=== PATIENT | male | born 1965 | race Caucasian/White ===

== ENCOUNTER 2017-01-23 09:12 | Inpatient (IN) | payer BC ==
[2017-01-23] MEDS ORDERED: SODIUM CHLORIDE 0.9% 1,000 ML IV STA ×2 (11:15)
[2017-01-23] MEDS ORDERED: RX INFO: IV CONTRAST WAS GIVEN 1 EACH MISC MISCELLANE PRN (11:15)
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
[2017-01-23 11:51] LABS: Basophils # (A) 0.1 k/uL (0-0.2); Basophils % (A) 1 %; CH 32.1; Eosinophils # (A) 0.4 k/uL (0-0.7); Eosinophils % (A) 3 %; HCT 47.5 % (39.0-53.0); HDW 2.37; HGB 15.9 gm/dL (13.0-17.5); Luc # (Auto) 0.26; Luc % (Auto) 2; Lymphocytes # (A) 1.8 k/uL (1.0-4.8); Lymphocytes % (A) 14 %; MCH 31.7 pg (25.0-35.0); MCHC 33.4 g/dL (31.0-37.0); MCV 94.8 fL (80.0-100.0); Mean Platelet Volume 6.7; Monocytes # (A) 0.9 k/uL (0-1.0); Monocytes % (A) 7 %; Neutrophils # (A) 9.3 k/uL (1.3-7.7); Neutrophils % (A) 73 %; RBC 5.01 m/uL (4.30-5.90); RDW 12.9 % (11.5-15.5); WBC 12.8 k/uL (3.8-10.6); WBC (Perox) 12.37
[2017-01-23 12:04] LABS: ALT 38 U/L (21-72); AST 31 U/L (17-59); Alkaline Phosphatase 72 U/L (38-126); Amylase 57 U/L (30-110); Anion Gap 12 mmol/L; Blood Urea Nitrogen 18 mg/dL (9-20); Calcium 9.4 mg/dL (8.4-10.2); Carbon Dioxide 27 mmol/L (22-30); Chloride 105 mmol/L (98-107); Glucose 89 mg/dL (74-99); Non-African American GFR(MDRD) >60 (>60 ml/min/1.73 sqM); Potassium 4.5 mmol/L (3.5-5.1); Sodium 144 mmol/L (137-145); Total Bilirubin 0.7 mg/dL (0.2-1.3); Total Protein 7.5 g/dL (6.3-8.2)
--- NOTE | 2017-01-23 12:39 | CT ---
EXAMINATION TYPE: CT abdomen pelvis w con DATE OF EXAM: 01/23/2017 12:24 PM COMPARISON: CT pelvis 12/17/2010 INDICATION: Abdominal pain DLP: 888.30 mGycm, Automated exposure control for dose reduction was used. CONTRAST: 100 ml mL of Omnipaque 300. Study performed without Oral Contrast TECHNIQUE: Axial images were obtained from above the diaphragm to the pubic rami in the axial plane a t 5 mm thick sections. Reconstructed images are reviewed on the computer in the coronal plane. FINDINGS: Limited CT sections are obtained the lung bases. There is a tiny density within the cardiophrenic an gle on lung windows measuring 0.[address] ABDOMEN: Liver: Normal Spleen: Normal Pancreas: Normal Adrenal glands: The adrenal glands are normal. Gallbladder: Normal Kidneys: No masses are evident. No hydronephrosis is present. No cysts are present. Delayed images were obtained through the kidneys, which remain unremarkable. Aorta: Vascular calcification is within the aorta. Inferior vena cava: Normal. CT PELVIS: Diverticular changes are within the sigmoid colon. There is some thickening with some mild inflammato ry change within the mid to distal sigmoid colon compatible with acute diverticulitis. Additional div erticula are scattered within the descending colon. A few diverticuli may be within the transverse co maury. No abscess formation is evident. No free air is identified. Appendix: Normal as visualized. Urinary bladder: Decompressed with limited evaluation. Genitourinary structures: Prostate is unremarkable. Fat-containing inguinal hernias are present bilat erally. Osseous structures: No suspicious lytic or sclerotic lesions. Facet degenerative changes within the l ower lumbar spine. IMPRESSIONS: 1. Mild to moderate acute diverticulitis mid to distal sigmoid colon.
[2017-01-23] MEDS ORDERED: ONDANSETRON 4 MG/2 ML VIAL IVP PRN (13:00)
[2017-01-23] MEDS ORDERED: SODIUM CHLORIDE 0.9% 1,000 ML IV ONE (13:00)
[2017-01-23] MEDS ORDERED: NALOXONE 0.4 MG/ML 1 ML VIAL IV PRN (13:00)
[2017-01-23] MEDS ORDERED: LEVOFLOXACIN 500MG-D5W PMX 500 MG in DEXTROSE/WATER 1 100ML.BAG IVPB STA (13:02)
[2017-01-23] MEDS ORDERED: metroNIDAZOLE-NS PMX 500 MG in SALINE 1 100ML.BAG IVPB STA (13:05)
[2017-01-23 13:15] LABS: Appearance,Urine Clear (Clear); Bilirubin,Urine Negative (Negative); Glucose,Urine (UA) Negative (Negative); Ketones,Urine Negative (Negative); Leukocyte Esterase,Urine Negative (Negative); Nitrite,Urine Negative (Negative); PH, Urine 6.5 (5.0-8.0); Protein,Urine Negative (Negative); Specific Gravity,Urine 1.021 (1.001-1.035); UA Billing (MACRO vs. MICRO) CHEM; Urobilinogen,Urine <2.0 mg/dL (<2.0)
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
[2017-01-23 15:24] VITALS: BMI 32.1
--- NOTE | 2017-01-23 20:20 | HP ---
DATE OF ADMISSION: 01/23/2017 The patient is a 51 -year-old came in with complaints of abdominal pain and bilateral lower abdominal quadrants. Patient complaining of some chills a couple days ago. Never checked for any fever. The patient feels bloated and distended and patient had a CT of the abdomen which showed sigmoid colitis mild to moderate. The patient was evaluated by surgery and they are recommending him to be n.p.o. for bowel rest. The patient was started on IV antibiotics. Patient does not get constipated that often. REVIEW OF SYSTEMS: CONSTITUTIONAL: No fever, no malaise, no fatigue. HEENT: No recent visual problems or hearing problems. Denied any sore throat. CARDIOVASCULAR: No chest pain, orthopnea, PND, no palpitations, no syncope. PULMONARY: No shortness of breath, no cough, no hemoptysis. GASTROINTESTINAL: As described in HPI. NEUROLOGICAL: No headaches, no weakness, no numbness. HEMATOLOGICAL: Denies any bleeding or petechiae. GENITOURINARY: Denies any burning micturition, frequency, or urgency. MUSCULOSKELETAL/RHEUMATOLOGICAL: Denies any joint pain, swelling, or any muscle pain. ENDOCRINE: Denies any polyuria or polydipsia. The rest of the 14 point review of systems is negative. PAST MEDICAL HISTORY: Asthma and hyperlipidemia. PAST SURGICAL HISTORY: Hernia repair. SOCIAL HISTORY: Former smoker. Denied any alcohol abuse or any drug abuse. FAMILY HISTORY: Father had DVT and brother had DVT and son had DVT . Home medications include: 1. Aspirin. 2. Bisacodyl. 3. Cholecalciferol. 4. Ciprofloxacin. 5. Indomethacin. 6. Multivitamin. 7. Pravastatin. 8. Flagyl. 9. Not sure whether these are home medications. Patient appears to be on these medications here. ALLERGIC TO PENICILLINS: PHYSICAL EXAMINATION: VITAL SIGNS: Temperature 96.2, pulse rate of 66, respiratory rate 16, blood pressure is 142/90, saturating at 98% on room air. GENERAL: The patient is alert and oriented x3, not in any acute distress. Well developed, well nourished. HEENT: Pupils are round and equally reacting to light. EOMI. No scleral icterus. No conjunctival pallor. Normocephalic, atraumatic. No pharyngeal erythema. No thyromegaly. CARDIOVASCULAR: S1 and S2 present. No murmurs, rubs, or gallops. PULMONARY: Chest is clear to auscultation, no wheezing or crackles. ABDOMEN: Soft, nontender, nondistended, normoactive bowel sounds. No palpable organomegaly. MUSCULOSKELETAL: No joint swelling or deformity. EXTREMITIES: No cyanosis, clubbing, or pedal edema. NEUROLOGICAL: Gross neurological examination did not reveal any focal deficits. SKIN: No rashes. LABORATORY DATA: ( ) abnormal for WBC count of 5800. CT of the abdomen as mentioned above. ASSESSMENT AND PLAN: 1. Acute diverticulitis for which we will continue with IV antibiotics. As per surgical recommendations, we will keep him n.p.o. 2. Hypertension, we will continue home medications for that. The patient is ( ) blood pressure is under control at this time. 3. Bilateral inguinal hernia, asymptomatic at this point of time. 4. Regarding hypertension, not is not on any antihypertensive medications. 5. For gastroesophageal reflux disease, we can continued omeprazole. 6. Regarding hypertension, we will continue to watch blood pressure ( ). Will not be started on any antihypertensives at this time. The patient will be followed by Dr. Hassan who covers for Dr. Peter Goncalves ( ) primary care physician from tomorrow.
[2017-01-23] MEDS: metroNIDAZOLE-NS PMX 500 MG in SALINE 1 100ML.BAG IVPB SCH (23:00)
[2017-01-24] MEDS: HYDROmorphone 1 MG/ML 1 ML SYRINGE IV PRN ×3 (02:29→16:41)
[2017-01-24 07:29] LABS: Basophils # (A) 0.1 k/uL (0-0.2); Basophils % (A) 1 %; CH 32.1; CHCM 33.6; Eosinophils # (A) 0.3 k/uL (0-0.7); Eosinophils % (A) 3 %; HCT 44.3 % (39.0-53.0); HDW 2.37; HGB 14.6 gm/dL (13.0-17.5); Luc # (Auto) 0.22; Luc % (Auto) 3; Lymphocytes # (A) 1.7 k/uL (1.0-4.8); Lymphocytes % (A) 22 %; MCH 31.6 pg (25.0-35.0); MCV 95.8 fL (80.0-100.0); Mean Platelet Volume 6.8; Monocytes # (A) 0.6 k/uL (0-1.0); Monocytes % (A) 7 %; Neutrophils # (A) 5.1 k/uL (1.3-7.7); Neutrophils % (A) 64 %; RBC 4.62 m/uL (4.30-5.90); RDW 12.7 % (11.5-15.5); WBC 7.9 k/uL (3.8-10.6); WBC (Perox) 8.43
[2017-01-24 07:50] LABS: ALT 38 U/L (21-72); AST 26 U/L (17-59); Alkaline Phosphatase 64 U/L (38-126); Anion Gap 8 mmol/L; Blood Urea Nitrogen 15 mg/dL (9-20); Calcium 8.5 mg/dL (8.4-10.2); Carbon Dioxide 26 mmol/L (22-30); Chloride 107 mmol/L (98-107); Glucose 85 mg/dL (74-99); Non-African American GFR(MDRD) >60 (>60 ml/min/1.73 sqM); Potassium 4.5 mmol/L (3.5-5.1); Sodium 141 mmol/L (137-145); Total Bilirubin 0.6 mg/dL (0.2-1.3); Total Protein 6.4 g/dL (6.3-8.2)
[2017-01-24] MEDS: metroNIDAZOLE-NS PMX 500 MG in SALINE 1 100ML.BAG IVPB SCH ×3 (09:51→23:26)
[2017-01-24] MEDS: ACETAMINOPHEN TAB 325 MG TAB PO PRN ×2 (13:20→19:26)
[2017-01-24] MEDS: LEVOFLOXACIN 500MG-D5W PMX 500 MG in DEXTROSE/WATER 1 100ML.BAG IVPB SCH (13:21)
[2017-01-24] MEDS: ENOXAPARIN 40 MG/0.4 ML SYRINGE SQ SCH (13:21)
--- NOTE | 2017-01-24 17:57 | P.PN ---
Subjective Principal diagnosis: Diverticulitis Having a headache (migrain with nausea. Possible caffeine wihdrawal. Pain is well controlled. Mild nasuea. No bowel movments. Objective - Vital Signs Vital signs: Vital Signs Temp 97.1 F L 01/24/17 14:50 Pulse 72 01/24/17 14:50 Resp 16 01/24/17 07:00 BP 128/78 01/24/17 14:50 Pulse Ox 98 01/24/17 14:50 Intake & Output 01/23/17 01/24/17 01/24/17 18:59 06:59 18:59 Output Total 1050 Balance -1050 Weight 92.986 kg Output: Urine 1050 Other: Voiding Method Toilet Urinal # Voids 1 2 - Constitutional General appearance: Present: average body habitus, cooperative, mild distress - Gastrointestinal Gastrointestinal Comment(s): soft and nontender no peritoneal signs. - Labs CBC & Chem 7: 01/24/17 06:52 01/24/17 06:52 Assessment and Plan (1) Bilateral inguinal hernia Status: Acute (2) Acute diverticulitis Status: Acute Plan: Patient is mildly tender. He has leukocytosis that is resolving . He maybe started in clear liquids. Patient has asymptomatic bilateral inguinal hernias that need no current treatment Will follow closely with you. Thank you for the consult.
--- NOTE | 2017-01-25 06:44 | PN ---
DATE OF SERVICE: 01/24/2017 PRESENTING COMPLAINT: Abdominal pain, bilateral lower quadrants. INTERVAL HISTORY: This is a 51-year-old male who came in with complaints of abdominal pain to his bilateral lower abdominal quadrants. CT of the abdomen showed sigmoid colitis mild to moderate in severity. Surgery has evaluated the patient and recommend patient to remain n.p.o. for bowel rest. Today patient was lying in bed appearing somewhat uncomfortable, is still complaining of some abdominal pain, has improved since admission. Still has nauseated feelings at this time. Review of systems done for constitutional, cardiovascular, gastrointestinal, pulmonary with relevant findings as above. CURRENT MEDICATIONS: Lovenox, hydromorphone, levofloxacin, metronidazole, Zofran. PHYSICAL EXAM: VITAL SIGNS: Temperature 98.2, pulse 75, respiratory rate 16, blood pressure 125/76, oxygen saturation 93% on room air. GENERAL APPEARANCE: Patient is awake, alert, able to answer questions. Complaining of abdominal pain better than when he was admitted. EYES: Pupils equal. Conjunctivae normal. NECK: JVD not raised. Mass not palpable. RESPIRATORY: Effort normal. LUNGS: Diminished bilateral bases. Fair airway clearance. CARDIOVASCULAR: S1, S2 normal. No edema noted. ABDOMEN: Soft, tender to palpation, particularly to the left lower and mid line areas. Liver and spleen not palpable. PSYCHIATRIC: Patient is alert and oriented x3. Mood and affect are normal. INVESTIGATIONS: White blood cell count 18.2 up from 14.6 on 01/23/17. Sodium 134, down from 138 on 01/23/17. BUN 39, creatinine 0.80. CT scan dated 01/23/2017; Impression: Mild to moderate acute diverticulitis mid to distal sigmoid colon. ASSESSMENT: 1. Acute diverticulitis. Continue IV fluids and antibiotics with bowel rest per surgical recommendations. 2. Hypertension. 3. Chronic gout. 4. Leukocytosis, improving. 5. Gastroesophageal reflux. PLAN: Diverticulitis will continue to be treated with IV antibiotics and bowel rest. Hypertension is currently under control. Will continue to administer current medications. Will address blood pressure issues as they arise, currently well controlled. Chronic gout, patient is currently in well managed with allopurinol. Will continue. Gastroesophageal reflux disease will be continued to manage with omeprazole.
[2017-01-25 07:02] LABS: Basophils % (A) 1 %; CHCM 33.6; Eosinophils # (A) 0.2 k/uL (0-0.7); Eosinophils % (A) 2 %; HCT 47.3 % (39.0-53.0); HGB 15.4 gm/dL (13.0-17.5); Luc # (Auto) 0.18; Luc % (Auto) 2; Lymphocytes # (A) 1.4 k/uL (1.0-4.8); Lymphocytes % (A) 17 %; MCH 31.2 pg (25.0-35.0); MCHC 32.7 g/dL (31.0-37.0); MCV 95.7 fL (80.0-100.0); Mean Platelet Volume 6.6; Monocytes # (A) 0.5 k/uL (0-1.0); Monocytes % (A) 6 %; Neutrophils # (A) 5.9 k/uL (1.3-7.7); Neutrophils % (A) 72 %; RBC 4.94 m/uL (4.30-5.90); RDW 12.7 % (11.5-15.5); WBC 8.2 k/uL (3.8-10.6); WBC (Perox) 7.95
[2017-01-25 07:13] LABS: Amylase 49 U/L (30-110); Anion Gap 10 mmol/L; Blood Urea Nitrogen 12 mg/dL (9-20); Carbon Dioxide 26 mmol/L (22-30); Chloride 106 mmol/L (98-107); Glucose 96 mg/dL (74-99); Non-African American GFR(MDRD) >60 (>60 ml/min/1.73 sqM); Potassium 4.3 mmol/L (3.5-5.1); Sodium 142 mmol/L (137-145)
[2017-01-25] MEDS: ENOXAPARIN 40 MG/0.4 ML SYRINGE SQ SCH (07:43)
[2017-01-25] MEDS: metroNIDAZOLE-NS PMX 500 MG in SALINE 1 100ML.BAG IVPB SCH ×2 (07:43→17:27)
[2017-01-25] MEDS: SODIUM CHLORIDE 0.9% 1,000 ML IV SCH ×2 (07:46→20:02)
--- NOTE | 2017-01-25 11:28 | PN ---
DATE OF SERVICE: 01/24/2017 ATTENDING NOTE: This patient was seen and examined by me yesterday on 01/24/17. I agree with the note of the nurse practitioner. Any changes as per low. Patient is overall feeling better. Abdominal pain is better. Has been on some ice chips. Lying in bed. Patient had one bowel movement. On examination, afebrile. ABDOMEN: Mild lower abdominal tenderness. No guarding or rigidity. PSYCH: Alert and oriented x3. Mood and affect normal. INVESTIGATIONS: White count is normal. ASSESSMENT: 1. Acute sigmoid diverticulitis with clinical improvement. 2. Essential hypertension. 3. Chronic gout. 4. Leukocytosis, improving. 5. Gastroesophageal reflux disease. PLAN: Overall doing better. The patient diet will be advanced to clear liquid. Encourage to ambulate and see how patient is doing. Will follow.
[2017-01-25] MEDS: LEVOFLOXACIN 500MG-D5W PMX 500 MG in DEXTROSE/WATER 1 100ML.BAG IVPB SCH (13:32)
--- NOTE | 2017-01-25 13:40 | P.PN ---
Objective - Vital Signs Vital signs: Vital Signs Temp 97.9 F 01/25/17 07:00 Pulse 62 01/25/17 07:00 Resp 16 01/25/17 07:00 BP 116/71 01/25/17 07:00 Pulse Ox 94 L 01/25/17 07:00 Intake & Output 01/24/17 01/25/17 01/25/17 18:59 06:59 18:59 Intake Total 480 Output Total 1050 975 Balance -1050 -975 480 Weight 92.986 kg Intake: Oral 480 Output: Urine 1050 975 Other: Voiding Method Toilet Toilet Urinal Urinal # Voids 2 1 - Labs CBC & Chem 7: 01/25/17 06:41 01/25/17 06:41
--- NOTE | 2017-01-25 13:53 | P.PN ---
Subjective A pleasant 51-year-old male being seen and examined. Patient has been up ambulating in the hallway. Patient currently is tolerating a liquid diet. Patient states is passing gas no stool. Patients being followed by surgical service at the request of the attending after CAT scan of the abdomen showed sigmoid colitis mild to moderate in severity. Patient's been on bowel rest with IV fluid for rehydration. Patient states the abdominal pain has significantly improved "almost gone" Objective - Vital Signs Vital signs: Vital Signs Temp 97.9 F 01/25/17 07:00 Pulse 62 01/25/17 07:00 Resp 16 01/25/17 07:00 BP 116/71 01/25/17 07:00 Pulse Ox 94 L 01/25/17 07:00 Intake & Output 01/24/17 01/25/17 01/25/17 18:59 06:59 18:59 Intake Total 1480 Output Total 1050 975 Balance -1050 -975 1480 Weight 92.986 kg Intake: IV 1000 Levofloxacin 500Mg-D5w 100 Pmx 500 mg In Dextrose/ Water 1 100ml.bag @ 100 mls/hr IVPB Q24H [facility] Rx#: [id number] Sodium Chloride 0.9% 1, 800 000 ml @ 100 mls/hr IV . Q10H [facility] Rx#:[id number] metroNIDAZOLE-NS PMX 500 100 mg In Saline 1 100ml.bag @ 100 mls/hr IVPB Q8HR [facility] Rx#:[id number] Oral 480 Output: Urine 1050 975 Other: Voiding Method Toilet Toilet Urinal Urinal # Voids 2 1 2 - Exam Physical exam 50-year-old male resting comfortably in bed pleasant alert oriented 3 Lungs essentially clear adequate air movement on room air no shortness of breath Heart S1-S2 audible and regular denying chest pain Abdomen soft not distended slight tendeness left lower quadrant bowel tones present tolerating diet no reports of nausea vomiting Extremities no edema noted - Labs CBC & Chem 7: 01/25/17 06:41 01/25/17 06:41 Assessment and Plan Plan: Impression Present on admission abdominal pain suspect due to acute diverticulitis Present on admission acute bilateral inguinal hernia CAT scan abdomen pelvis shows mild to moderate diverticulitis New onset constipation Present on admission leukocytosis Failed outpatient treatment for acute diverticulitis Plan Patient is a nonsurgical candidate at this time continue current management Pain control IV fluid for hydration DVT and GI prophylaxis monitor surgical course closely with further recommendation Continue IV antibiotics as ordered The above dictated assessment and findings were discussed with dr harris Impression and the plan of care have been dictated as directed. Ksenia Santo nurse practitioner acting as a scribe for dr harris
[2017-01-25 20:36] VITALS: RESP 20
--- NOTE | 2017-01-25 23:06 | PN ---
DATE OF SERVICE: 01/25/2017 PRESENTING COMPLAINT: Abdominal pain, bilateral lower quadrants. INTERVAL HISTORY: This is a 51-year-old male who came in with complaints of abdominal pain to his bilateral lower abdominal quadrants. CT of the abdomen showed sigmoid colitis, mild to moderate in severity. Surgery evaluated the patient and recommended patient remain n.p.o. for bowel rest. Today patient is lying in bed, appears much more comfortable. Mild complaints of abdominal pain to the left lower quadrant ( ) midline. Review of systems done for constitutional, cardiovascular, gastrointestinal, pulmonary, with relevant findings as above. CURRENT MEDICATIONS: 1. Lovenox. 2. Hydromorphone. 3. Levofloxacin. 4. Metronidazole. 5. Zofran. PHYSICAL EXAMINATION: VITAL SIGNS: Temperature 96.4, pulse 65, respiratory rate 17, blood pressure 125/86, oxygen saturation 96% on room air. GENERAL APPEARANCE: Patient is awake, alert, resting comfortably in bed. His is at the bedside. No acute distress noted or voiced EYES: Pupils equal. Conjunctivae normal. NECK: JVD not raised. Mass not palpable. RESPIRATORY: Effort normal. LUNGS: Diminished bilateral bases. Fair airway clearance. CARDIOVASCULAR: S1, S2 normal. No edema noted. ABDOMEN: Soft. Tender to palpation, particularly to the left lower and midline areas. Liver and spleen not palpable. No guarding or rigidity noted. PSYCHIATRY: Patient alert and oriented x3. Mood and affect normal. INVESTIGATIONS: All of today's lab values are within normal limits, including amylase and lipase. Amylase is 49, lipase 105. ASSESSMENT: 1. Acute sigmoid diverticulitis with clinical improvement. 2. Essential hypertension. 3. Chronic gout. 4. Leukocytosis, improving. 5. Gastroesophageal reflux disease. PLAN: Patient is overall doing better. Patient's diet has been advanced to clear liquids and will be further advanced as long as he tolerates tonight for dinner. Encouraged patient to ambulate. Will continue to see improvement in patient. Tentative plan to discharge on 01/26/2017.
[2017-01-26] MEDS: metroNIDAZOLE-NS PMX 500 MG in SALINE 1 100ML.BAG IVPB SCH ×2 (00:55→08:18)
[2017-01-26] MEDS: SODIUM CHLORIDE 0.9% 1,000 ML IV SCH ×2 (00:56→08:18)
[2017-01-26 07:34] VITALS: BP 114/87; PULSE 77; TEMP 98.2
--- NOTE | 2017-01-26 07:37 | PN ---
DATE OF SERVICE: 01/25/2017 PRESENTING COMPLAINT: Abdominal pain. INTERVAL HISTORY: This is a patient who presented with acute diverticulitis. Overall doing much better. Diet has been advanced. Had one more bowel movement. Has been out of bed. Abdominal pain much better. Review of systems done for constitutional, cardiovascular, GI, pulmonary; relevant findings as above. Current medications include Levaquin and Flagyl. On examination, temperature 96.4, pulse 65, respirations 17, blood pressure 125/86, pulse ox 96% on room air. GENERAL APPEARANCE: Lying in bed, comfortable. EYES: Pupils equal. Conjunctivae normal. NECK: JVD not raised. Mass not palpable. RESPIRATORY: Effort normal. LUNGS: Fair air entry. CARDIOVASCULAR: First and second sounds normal. No edema. ABDOMEN: Soft, minimal tenderness. Liver and spleen not palpable. PSYCHIATRY: Alert and oriented x3. Mood and affect normal. INVESTIGATIONS: White count 8.2, hemoglobin 15.4. Potassium 4.3. ASSESSMENT: 1. Acute sigmoid diverticulitis with clinical improvement. 2. Essential hypertension. 3. Chronic gout. 4. Leukocytosis, improving. 5. Gastroesophageal reflux disease. PLAN: Continue current medication and treatment plan. Diet has been advanced. When okay with Surgery, patient can be discharged. Care was discussed with the patient.
[2017-01-26 08:04] LABS: Basophils % (A) 1 %; CH 32.1; CHCM 33.7; Eosinophils # (A) 0.2 k/uL (0-0.7); Eosinophils % (A) 3 %; HCT 45.2 % (39.0-53.0); HDW 2.38; Luc # (Auto) 0.22; Luc % (Auto) 4; Lymphocytes # (A) 1.4 k/uL (1.0-4.8); Lymphocytes % (A) 23 %; MCH 31.8 pg (25.0-35.0); MCHC 33.3 g/dL (31.0-37.0); MCV 95.7 fL (80.0-100.0); Mean Platelet Volume 6.5; Monocytes # (A) 0.6 k/uL (0-1.0); Monocytes % (A) 9 %; Neutrophils # (A) 3.7 k/uL (1.3-7.7); Neutrophils % (A) 61 %; RBC 4.72 m/uL (4.30-5.90); RDW 12.7 % (11.5-15.5); WBC 6.2 k/uL (3.8-10.6); WBC (Perox) 6.29
[2017-01-26] MEDS: ENOXAPARIN 40 MG/0.4 ML SYRINGE SQ SCH (08:18)
[2017-01-26 09:34] LABS: Anion Gap 8 mmol/L; Blood Urea Nitrogen 12 mg/dL (9-20); Calcium 8.9 mg/dL (8.4-10.2); Carbon Dioxide 26 mmol/L (22-30); Chloride 107 mmol/L (98-107); Glucose 98 mg/dL (74-99); Non-African American GFR(MDRD) 59 (>60 ml/min/1.73 sqM); Potassium 4.4 mmol/L (3.5-5.1); Sodium 141 mmol/L (137-145)
--- NOTE | 2017-01-26 11:51 | P.PN ---
Progress Note - Text Patient seen this morning dressed up in room tolerated diet and states he's anxious to be discharged. Patient states the abdominal pain is gone. There is no nausea vomiting and has had a bowel movement is passing gas. Did discuss with the patient the plan of care. From a surgical perspective patient to be discharged there is no surgical intervention warranted at this time patient can continue on the antibiotics as ordered can follow-up with Dr. Harris in the outpatient setting defer to the timing of the discharge to the attending. The above dictated assessment and findings were discussed with dr harris Impression and the plan of care have been dictated as directed. Ksenia Santo nurse practitioner acting as a scribe for dr harris
[2017-01-26] MEDS ORDERED: LEVOFLOXACIN 500 MG TAB PO SCH (14:00)
[2017-01-26] MEDS ORDERED: metroNIDAZOLE 500 MG TAB PO SCH (16:00)
--- NOTE | 2017-01-27 09:42 | DS ---
DATE OF ADMISSION: 01/23/2017 DATE OF DISCHARGE: 01/26/2017 FINAL DIAGNOSES: 1. Acute sigmoid diverticulitis, present at admission. 2. Essential hypertension. 3. Chronic gout. 4. Leukocytosis, improved. 5. Gastroesophageal reflux disease. HOSPITAL COURSE: This patient with acute sigmoid diverticulitis doing better by the time of discharge, tolerating a diet, had a bowel movement. On examination, abdomen soft, nontender. Bowel sounds are present. INVESTIGATIONS: White count is normalized. DISCHARGE MEDICATIONS: 1. Aspirin 81 mg a day. 2. Dulcolax 5 mg p.r.n. 3. Vitamin D3 5000 units p.o. daily. 4. Indocin 50 mg p.o. t.i.d. p.r.n. 5. Multivitamin 1 tablet p.o. daily. 6. Pravachol 40 mg p.o. q.h.s. 7. Levaquin 500 mg p.o. daily for 7 days. 8. Flagyl 500 p.o. t.i.d. for 7 days. DIET: Soft, bland. Follow up with Dr. Mckeon on 02/08/17, follow with Dr. Goncalves on 01/28/17.
== END 2017-01-26 12:19 | disposition home or self-care (01) | DRG 392 ==
LOC: EC 09:12 → 3SUR 13:14
PROVIDERS: ADMIT Hospitalist; ATTEND Hospitalist
DX: K57.32 Diverticulitis of large intestine without perforation or abscess without bleeding (principal); I10 Essential (primary) hypertension; E78.5 Hyperlipidemia, unspecified; J45.909 Unspecified asthma, uncomplicated; K21.9 Gastro-esophageal reflux disease without esophagitis; K40.20 Bilateral inguinal hernia, without obstruction or gangrene, not specified as recurrent; G43.909 Migraine, unspecified, not intractable, without status migrainosus; K52.9 Noninfective gastroenteritis and colitis, unspecified; K59.00 Constipation, unspecified; M1A.9XX0 Chronic gout, unspecified, without tophus (tophi); Z79.899 Other long term (current) drug therapy; Z87.891 Personal history of nicotine dependence; Z88.0 Allergy status to penicillin; Z79.82 Long term (current) use of aspirin
CPT/HCPCS: 36415; 74177; 80048; 80053; 81003; 82150; 83605; 83690; 85025; 96361; 96365; 96375; 99285

== ENCOUNTER → 2019-03-16 | Outpatient (CLI) | payer BC ==
--- NOTE | 2019-03-16 13:09 | CT ---
EXAMINATION TYPE: CT abdomen pelvis wo con DATE OF EXAM: 03/16/2019 COMPARISON: 01/23/2017 HISTORY: 53-year-old male Nervous, jittery feeling in stomach CT DLP: 816.2 mGycm. Automated exposure control for dose reduction was used. TECHNIQUE: Contiguous axial scanning of the abdomen and pelvis without IV contrast. Coronal and sagit babs reconstructions performed. FINDINGS: Heart normal size without pericardial effusion. Some strandy atelectasis inferior lingula. A small em physematous cyst posterior right base. No pleural effusion. Noncontrast appearance of the liver, gallbladder, adrenal glands, kidneys, and pancreas show no gross abnormality. Stable contour nodularity along the anterior aspect of the left mid kidney as compared to 01/23/2017. Some scattered prominent but nonenlarged mesenteric lymph nodes measuring up to 6 mm. No dilated small bowel, free fluid, or free air. Normal appendix. Left hemicolonic diverticulosis, extensive within the sigmoid colon where there is c hronic-appearing wall thickening. No pericolonic inflammatory change seen. Patulous right inguinal canal. Bladder nondistended. No abnormal fluid collection in the pelvis or pe lvic lymphadenopathy seen. Bones: Degenerative changes at the hips and left greater than right SI joint. Endplate spondylosis lo wer thoracic spine. Facet arthropathy lower lumbar spine. IMPRESSION: Left hemicolonic diverticulosis, extensive in the sigmoid colon. There is stable sigmoid wall thicken ing without surrounding inflammation. Findings suggest chronic diverticulitis.
== END | disposition home or self-care (01) ==
LOC: RADCTMAIN 11:34
PROVIDERS: ATTEND Family Medicine
DX: K57.30 Diverticulosis of large intestine without perforation or abscess without bleeding (principal)
CPT/HCPCS: 74176

== ENCOUNTER 2019-05-23 23:23 | Observation (INO) | payer BC ==
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
[2019-05-24 00:05] LABS: Basophils # (A) 0.1 k/uL (0-0.2); Basophils % (A) 1 %; Eosinophils # (A) 0.4 k/uL (0-0.7); Eosinophils % (A) 3 %; HCT 48.9 % (39.0-53.0); HGB 16.6 gm/dL (13.0-17.5); Lymphocytes # (A) 1.7 k/uL (1.0-4.8); Lymphocytes % (A) 15 %; MCH 31.7 pg (25.0-35.0); MCV 93.4 fL (80.0-100.0); Mean Platelet Volume 6.8; Monocytes % (A) 8 %; Neutrophils # (A) 8.1 k/uL (1.3-7.7); Neutrophils % (A) 70 %; Platelet Count 193 k/uL (150-450); RBC 5.24 m/uL (4.30-5.90); RDW 13.1 % (11.5-15.5); WBC 11.6 k/uL (3.8-10.6)
--- NOTE | 2019-05-24 00:10 | XR ---
INDICATION: Chest pain COMPARISON: None FINDINGS: Frontal and lateral views of the chest are obtained. The cardiomediastinal silhouette is within normal limits. Pulmonary vascularity is normal. The lungs are clear. There is no effusion or pneumothorax. Bony elements are within normal limits. IMPRESSION: No acute cardiopulmonary disease.
[2019-05-24 00:18] LABS: ALT 45 U/L (21-72); AST 45 U/L (17-59); African American GFR (CKD) >90 (>60 ml/min/1.73 sqM); Albumin 4.2 g/dL (3.5-5.0); Alkaline Phosphatase 75 U/L (38-126); Amylase 53 U/L (30-110); Anion Gap 11 mmol/L; Blood Urea Nitrogen 17 mg/dL (9-20); Calcium 9.6 mg/dL (8.4-10.2); Carbon Dioxide 24 mmol/L (22-30); Chloride 103 mmol/L (98-107); Glucose 114 mg/dL (74-99); Potassium 3.8 mmol/L (3.5-5.1); Sodium 138 mmol/L (137-145); Total Bilirubin 0.9 mg/dL (0.2-1.3); Total Protein 7.1 g/dL (6.3-8.2)
[2019-05-24 00:27] LABS: INR 0.9 (<1.2); Partial Thromboplastin Time 25.5 sec (22.0-30.0); Prothrombin Time 10.1 sec (9.0-12.0)
[2019-05-24 00:31] LABS: D-Dimer 1.01 mg/L FEU (<0.60)
[2019-05-24 00:54] VITALS: RESP 18
--- NOTE | 2019-05-24 01:11 | CT ---
INDICATION: Chest pain TECHNIQUE: CT acquisition is performed through the chest per institutional CT pulmonary angiogram protocol following the administration of IV contrast. Sagittal and coronal reformatted images and sagittal and coronal MIP images are provided. DOSE INFORMATION: DLP 493.6 mGy-cm. This CT exam was performed using one or more of the following dose reduction techniques: automated exposure control, adjustment of the mA and/or kV according to patient size, and/or use of iterative reconstruction technique. COMPARISON: CXR 05/24/19. FINDINGS: The thyroid gland is unremarkable. There is adequate opacification of the pulmonary arteries. There is no evidence of acute pulmonary embolism. The main pulmonary artery is normal in caliber. There is no thoracic aortic aneurysm or dissection. Heart size is normal. There is no pericardial effusion. There is no adenopathy. There is no airspace consolidation, pleural effusion, pneumothorax, pulmonary parenchymal mass, or central endobronchial lesion. The visualized upper abdomen is unremarkable. There are no acute osseous findings. IMPRESSION: 1. No evidence of acute pulmonary embolism or acute intrathoracic process.
[2019-05-24] MEDS ORDERED: NITROGLYCERIN SL TABS 0.4 MG TAB SUBLINGUAL STA (02:01)
[2019-05-24] MEDS ORDERED: ASPIRIN 81 MG PO STA (02:01)
[2019-05-24] MEDS ORDERED: NITROGLYCERIN SL TABS 0.4 MG TAB SUBLINGUAL PRN (02:02)
[2019-05-24] MEDS ORDERED: SODIUM CHLORIDE 0.9% 1,000 ML IV SCH (02:15)
[2019-05-24] MEDS ORDERED: LEVOFLOXACIN 750 MG TAB PO SCH (09:00)
[2019-05-24 09:21] LABS: Cholesterol 163 mg/dL (<200); HDL Cholesterol 50 mg/dL (40-60); LDL Cholesterol,Calculated 93 mg/dL (0-99); Triglycerides 102 mg/dL (<150)
[2019-05-24] MEDS: metroNIDAZOLE 500 MG TAB PO SCH ×2 (09:34→17:21)
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
[2019-05-24] MEDS ORDERED: PANTOPRAZOLE 40 MG TABLET PO SCH (10:30)
--- NOTE | 2019-05-24 11:46 | ECHOF ---
Referral Reason:cp MEASUREMENTS -------- HEIGHT: 170.2 cm WEIGHT: 1047.8 kg BP: 134/84 RVIDd: 2.7 cm (< 3.3) IVSd: 1.1 cm (0.6 - 1.1) LVIDd: 3.5 cm (3.9 - 5.3) LVPWd: 1.4 cm (0.6 - 1.1) IVSs: 1.8 cm LVIDs: 2.1 cm LVPWs: 1.8 cm LAESV Index (A-L): 5.69 ml/m Ao Diam: 2.8 cm (2.0 - 3.7) AV Cusp: 2.4 cm (1.5 - 2.6) LA Diam: 3.0 cm (2.7 - 3.8) MV EXCURSION: 22.213 mm (> 18.000) MV EF SLOPE: 110 mm/s (70 - 150) EPSS: 1.1 cm MV E Matthew: 0.76 m/s MV DecT: 236 ms MV A Matthew: 0.69 m/s MV E/A Ratio: 1.10 RAP: 5.00 mmHg RVSP: 15.28 mmHg FINDINGS -------- Sinus rhythm. This was a technically adequate study. The left ventricular size is normal. There is mild concentric left ventricular hypertrophy. Overa ll left ventricular systolic function is normal with, an EF between 55 - 60 %. The diastolic fillin g pattern is normal for the age of the patient 10.45. The right ventricle is normal in size. Normal LA size by volume 22+/-6 ml/m2. The right atrial size is normal. Interatrial and interventricular septum intact. The aortic valve is trileaflet and appears structurally normal. The mitral valve is normal. There is trace mitral regurgitation. The tricuspid valve appears structurally normal. Trace tricuspid regurgitation present. Right pablito tricular systolic pressure is normal at < 35 mmHg. There is no pulmonic regurgitation present. The aortic root size is normal. Normal inferior vena cava with normal inspiratory collapse consistent with estimated right atrial pre ssure of 5 mmHg. The flow patterns, measured by Doppler, appear normal. There is no pericardial effusion. CONCLUSIONS -------- 1. Sinus rhythm. 2. This was a technically adequate study. 3. The left ventricular size is normal. 4. There is mild concentric left ventricular hypertrophy. 5. Overall left ventricular systolic function is normal with, an EF between 55 - 60 %. 6. The diastolic filling pattern is normal for the age of the patient 10.45 7. The right ventricle is normal in size. 8. Normal LA size by volume 22+/-6 ml/m2. 9. The right atrial size is normal. 10. Interatrial and interventricular septum intact. 11. The aortic valve is trileaflet and appears structurally normal. 12. The mitral valve is normal. 13. There is trace mitral regurgitation. 14. The tricuspid valve appears structurally normal. 15. Trace tricuspid regurgitation present. 16. Right ventricular systolic pressure is normal at < 35 mmHg. 17. There is no pulmonic regurgitation present. 18. The aortic root size is normal. 19. Normal inferior vena cava with normal inspiratory collapse consistent with estimated right atrial pressure of 5 mmHg. 20. The flow patterns, measured by Doppler, appear normal. 21. There is no pericardial effusion. EXTRACORPOREAL TECHNICIAN: Estefany Solis RDCS
[2019-05-24 16:24] VITALS: BP 134/87; PULSE 66; TEMP 98.1
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
[2019-05-24] MEDS ORDERED: PRAVASTATIN SODIUM 40 MG TAB PO SCH (21:00)
--- NOTE | 2019-05-24 21:02 | P.DS ---
Providers Date of admission: 05/24/19 02:02 Expected date of discharge: 05/24/19 Attending physician: Marvel Hassan Consults: 05/24/19 02:02 Consult Physician Routine Consulting Provider: Bishnu Judge Consult Reason/Comments: chest pain Do you want consulting provider notified?: Yes Primary care physician: Dale Goncalves [facility] Course: Chief Complaint: Chest pain Hospital course: This is a pleasant [address] goncalves out of [place]. Chronic stable medical conditions include hyperlipidemia, gout, reflux, diverticulitis. Patient has known colonic diverticulitis and had a flareup started about 2 days ago. He noticed left lower quadrant pain. No nausea vomiting. No fever no chills. Given that he is known this for he had some antibiotics left over. He started taking them. Yesterday he noticed that his left arm was hurting so was his left shoulder and along with that he started having chest tightness. Subsequently also noticeably short of breath protocol in a sweat is a bit cold and clammy. Concern for this being cardiac decided to come in. Symptoms lasted for a few hours. Cardiology was consulted. Per telemetry. Denies any prior cardiac history. Seen by Dr. Judge from cardiogenic. [place] to be atypical. 2-D echocardiogram is unremarkable. Patient was discharged home. Patient also has had a flareup of his diverticulitis which slowly improving. Told him to follow his PCP. Consultation: Dr. Judge from cardiology Physical examination: VITAL SIGNS: 98.1, 66, 18, 1:30/87, 96% room air GENERAL: BMI 32.9, sitting up, comfortable EYES: Pupils equal. Conjunctiva normal. HEENT: External appearance of nose and ears normal, oral cavity grossly normal. NECK: JVD not raised; masses not palpable. HEART: First and second heart sounds are normal; no edema. LUNGS: Respiratory rate normal; clear to auscultation. ABDOMEN: Soft, nontender, liver spleen not palpable, no masses palpable. PSYCH: Alert and oriented x3; mood and affect normal. INVESTIGATIONS, reviewed in the clinical context: White count 11.6, hemoglobin 16.6, platelets 193, potassium 3.8, creatinine 1.0 Troponin I 3 negative LDL 93 EKG tracing personally reviewed by me-normal sinus rhythm Chest x-ray film personally reviewed by me-lung mishra clear Chest CTA and-negative for PE 2-D echo shows EF of 55-60%. Assessment: -Anterior chest wall pain. [place] to be noncardiac per cardiology. -Obesity BMI 32.9 -Hyperlipidemia -GERD -Mild diverticulitis colonic, clinical diagnosis Disposition: Home Patient Condition at Discharge: Stable Plan - Discharge Summary Discharge Rx Participant: No New Discharge Prescriptions: New metroNIDAZOLE [Flagyl] 500 mg PO Q8HR tab Levofloxacin [Levaquin] 750 mg PO DAILY #7 tab Nitroglycerin Sl Tabs [Nitrostat] 0.4 mg SUBLINGUAL Q5M PRN #20 tab PRN Reason: Chest Pain Continue Pravastatin Sodium [Pravachol] 40 mg PO HS Aspirin EC [Ecotrin Low Dose] 81 mg PO DAILY Omeprazole 40 mg PO DAILY Discharge Medication List Aspirin EC [Ecotrin Low Dose] 81 mg PO DAILY 01/23/17 [History] Pravastatin Sodium [Pravachol] 40 mg PO HS 01/23/17 [History] Levofloxacin [Levaquin] 750 mg PO DAILY #7 tab 05/24/19 [Rx] Nitroglycerin Sl Tabs [Nitrostat] 0.4 mg SUBLINGUAL Q5M PRN #20 tab 05/24/19 [Rx] Omeprazole 40 mg PO DAILY 05/24/19 [History] metroNIDAZOLE [Flagyl] 500 mg PO Q8HR tab 05/24/19 [Rx] Follow up Appointment(s)/Referral(s): Bishnu Judge MD [STAFF PHYSICIAN] - 06/06/19 10:45 am (follow up for outpatient stress test. follow up with Eleanor.) Dale Goncalves MD [Primary Care Provider] - 3 Days Patient Instructions/Handouts: Chest Pain (DC), Diverticulitis (DC) Discharge Disposition: HOME SELF-CARE
[2019-05-25] MEDS ORDERED: ASPIRIN 81 MG PO SCH (09:00)
[2019-05-25] MEDS ORDERED: ASPIRIN 325 MG TAB PO SCH (09:00)
== END 2019-05-24 18:28 | disposition home or self-care (01) ==
LOC: EC 23:23 → 1SOBS 05-24 02:02
PROVIDERS: ADMIT Hospitalist; ATTEND Hospitalist
DX: R07.89 Other chest pain (principal); K57.92 Diverticulitis of intestine, part unspecified, without perforation or abscess without bleeding; E78.5 Hyperlipidemia, unspecified; K21.9 Gastro-esophageal reflux disease without esophagitis; R61 Generalized hyperhidrosis; M10.9 Gout, unspecified; J45.909 Unspecified asthma, uncomplicated; E66.9 Obesity, unspecified; Z68.32 Body mass index [BMI] 32.0-32.9, adult; Z79.82 Long term (current) use of aspirin; Z79.899 Other long term (current) drug therapy; Z88.0 Allergy status to penicillin; Z87.891 Personal history of nicotine dependence; Z83.2 Family history of diseases of the blood and blood-forming organs and certain disorders involving the immune mechanism; Z82.49 Family history of ischemic heart disease and other diseases of the circulatory system
CPT/HCPCS: 99285; 36415; 93005; 93306; 85379; 80061; 80053; 82150; 83690; 83735; 84484; 85025; 85610; 85730; 71046; 71275; G0378; Q9967

== ENCOUNTER 2020-04-08 16:10 | Inpatient (IN) | payer BC ==
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
[2020-04-08 17:21] LABS: Basophils # (A) 0.1 k/uL (0-0.2); Basophils % (A) 1 %; Eosinophils # (A) 0.4 k/uL (0-0.7); Eosinophils % (A) 3 %; HCT 49.1 % (39.0-53.0); HGB 15.9 gm/dL (13.0-17.5); Lymphocytes # (A) 1.7 k/uL (1.0-4.8); Lymphocytes % (A) 13 %; MCH 30.8 pg (25.0-35.0); MCHC 32.3 g/dL (31.0-37.0); MCV 95.2 fL (80.0-100.0); Mean Platelet Volume 6.8; Monocytes % (A) 7 %; Neutrophils # (A) 10.1 k/uL (1.3-7.7); Neutrophils % (A) 73 %; Platelet Count 316 k/uL (150-450); RBC 5.16 m/uL (4.30-5.90); RDW 12.4 % (11.5-15.5); WBC 13.8 k/uL (3.8-10.6)
[2020-04-08 17:27] LABS: Appearance,Urine Clear (Clear); Bilirubin,Urine Negative (Negative); Blood,Urine Negative (Negative); Color,Urine Light Red; Glucose,Urine (UA) Negative (Negative); Hyaline Casts,Urine 1 /lpf (0-2); Ketones,Urine 1+ (Negative); Leukocyte Esterase,Urine Small (Negative); Mucus,Urine Moderate /hpf; Nitrite,Urine Negative (Negative); PH, Urine 5.5 (5.0-8.0); Protein,Urine Trace (Negative); RBC,Urine 4 /hpf (0-5); Specific Gravity,Urine 1.031 (1.001-1.035); Squamous Epithelial Cell,Urine <1 /hpf (0-4); Urobilinogen,Urine <2.0 mg/dL (<2.0); WBC,Urine 1 /hpf (0-5)
[2020-04-08 17:29] LABS: ALT 26 U/L (4-49); AST 32 U/L (17-59); African American GFR (CKD) >90 (>60 ml/min/1.73 sqM); Albumin 3.9 g/dL (3.5-5.0); Alkaline Phosphatase 62 U/L (38-126); Amylase 42 U/L (30-110); Anion Gap 9 mmol/L; Blood Urea Nitrogen 13 mg/dL (9-20); Calcium 8.9 mg/dL (8.4-10.2); Carbon Dioxide 23 mmol/L (22-30); Chloride 106 mmol/L (98-107); Glucose 89 mg/dL (74-99); Non-African American GFR(CKD) 89 (>60 ml/min/1.73 sqM); Potassium 4.1 mmol/L (3.5-5.1); Sodium 138 mmol/L (137-145); Total Bilirubin 0.4 mg/dL (0.2-1.3); Total Protein 6.6 g/dL (6.3-8.2)
[2020-04-08 17:31] LABS: INR 1.1 (<1.2); Partial Thromboplastin Time 24.6 sec (22.0-30.0); Prothrombin Time 10.9 sec (9.0-12.0)
--- NOTE | 2020-04-08 18:14 | CT ---
EXAMINATION TYPE: CT abdomen pelvis w con DATE OF EXAM: 04/08/2020 COMPARISON: 03/16/2019 HISTORY: Generalized abdominal pain and gross hematuria. CT DLP: 1394.8 mGycm Automated exposure control for dose reduction was used. CONTRAST: Performed with IV Contrast, patient injected with 100ml mL of Isovue 300. Images were obtained from the diaphragm to the floor the pelvis with IV contrast. Lung bases are clear. There is no pleural effusion. Heart size is normal. Liver spleen pancreas stomach gallbladder appear normal. Bile ducts are not dilated. Stomach has norm al size. There is no adrenal mass. Kidneys show satisfactory contrast opacification. There is no hydronephrosi s. Ureters are not dilated. There is no retroperitoneal adenopathy. Appendix is posterior and appears normal. Bladder distends smoothly. There is extensive wall thickening and inflammatory changes of the mid sigmoid colon. There are numer ous diverticula. There is a complex 5.5 cm fluid collection anterior to the mid sigmoid colon consist ent with peridiverticular abscess. There is no ascites. There is no free air. There is no sign of a bowel obstruction. There is right in guinal hernia that contains fat. Lumbar vertebra have normal alignment. Posterior elements are intact. There is no compression fractur e. Bony pelvis is intact. IMPRESSION: There is colonic diverticulosis with severe sigmoid diverticulosis. There is large peridiverticular a bscess anterior to the mid sigmoid colon. Wall thickening of the sigmoid colon related to diverticuli tis. Diverticulitis appears new compared to old exam.
[2020-04-08] MEDS ORDERED: SODIUM CHLORIDE 0.9% 1,000 ML IV ONE (18:25)
[2020-04-08] MEDS ORDERED: SODIUM CHLORIDE 0.9% 500 ML 500 ML IV ONE (18:27)
[2020-04-08] MEDS ORDERED: NALOXONE 0.4 MG/ML 1 ML VIAL IV PRN (18:42)
[2020-04-08] MEDS ORDERED: ONDANSETRON 4 MG/2 ML VIAL IVP PRN (18:42)
[2020-04-08] MEDS: SODIUM CHLORIDE 0.9% 1,000 ML IV SCH (19:11)
[2020-04-08] MEDS ORDERED: ACETAMINOPHEN TAB 325 MG TAB PO STA (19:11)
[2020-04-08] MEDS ORDERED: MEROPENEM 1,000 MG in SODIUM CHLORIDE 0.9% 100 ML IVPB SCH (19:30)
[2020-04-08] MEDS: MEROPENEM 1 GM in SODIUM CHLORIDE 0.9% 100 ML IVPB SCH (20:11)
[2020-04-08] MEDS: MORPHINE SULFATE 4 MG/ML SYRINGE IV PRN ×2 (20:11→23:56)
[2020-04-08] MEDS ORDERED: IPRATROPIUM-ALBUTEROL 3 ML NEB INHALATION PRN (21:04)
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
[2020-04-09] MEDS: SODIUM CHLORIDE 0.9% 1,000 ML IV SCH ×4 (04:21→23:08)
[2020-04-09] MEDS: MEROPENEM 1 GM in SODIUM CHLORIDE 0.9% 100 ML IVPB SCH ×2 (04:21→12:22)
[2020-04-09 07:38] LABS: HCT 42.3 % (39.0-53.0); HGB 14.1 gm/dL (13.0-17.5); MCHC 33.4 g/dL (31.0-37.0); MCV 95.8 fL (80.0-100.0); Mean Platelet Volume 6.9; Platelet Count 310 k/uL (150-450); RBC 4.41 m/uL (4.30-5.90); RDW 12.4 % (11.5-15.5); WBC 12.9 k/uL (3.8-10.6)
[2020-04-09 08:05] LABS: ALT 20 U/L (4-49); AST 24 U/L (17-59); African American GFR (CKD) >90 (>60 ml/min/1.73 sqM); Alkaline Phosphatase 49 U/L (38-126); Anion Gap 5 mmol/L; Blood Urea Nitrogen 9 mg/dL (9-20); Calcium 7.8 mg/dL (8.4-10.2); Carbon Dioxide 25 mmol/L (22-30); Chloride 107 mmol/L (98-107); Glucose 91 mg/dL (74-99); Non-African American GFR(CKD) >90 (>60 ml/min/1.73 sqM); Potassium 4.1 mmol/L (3.5-5.1); Sodium 137 mmol/L (137-145); Total Bilirubin 0.4 mg/dL (0.2-1.3); Total Protein 5.3 g/dL (6.3-8.2)
[2020-04-09] MEDS: MORPHINE SULFATE 4 MG/ML SYRINGE IV PRN (08:37)
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
--- NOTE | 2020-04-09 12:12 | P.PN ---
Subjective Progress Note Date: 04/09/20 Patient is doing fairly well today. He is awaiting CT-guided aspiration of the abscess. Denies nausea or vomiting. Objective - Vital Signs Vital signs: Vital Signs Temp 98.8 F 04/09/20 07:00 Pulse 69 04/09/20 07:00 Resp 17 04/09/20 07:00 BP 116/72 04/09/20 07:00 Pulse Ox 97 04/09/20 07:00 Intake & Output 04/08/20 04/09/20 04/09/20 18:59 06:59 18:59 Weight 97.522 kg 97.522 kg Other: Voiding Method Toilet Toilet # Voids 1 - Exam General: The patient is awake and alert, in no distress Eye: there is normal conjunctiva bilaterally. Neck: The neck is supple, there is no JVD. Cardiovascular: Normal S1-S2, no S3-S4, no murmurs. Respiratory: Lungs clear to auscultation bilaterally Gastrointestinal: Abdomen is soft, nontender Musculoskeletal: There is no pedal edema. Neurological:. Speech is normal. Skin: Skin is warm and dry - Labs CBC & Chem 7: 04/09/20 06:52 04/09/20 06:52 Labs: Abnormal Lab Results - Last 24 Hours (Table) 04/08/20 04/08/20 04/09/20 Range/Units 17:09 17:09 06:52 WBC 13.8 H 12.9 H (3.8-10.6) k/uL Neutrophils # 10.1 H (1.3-7.7) k/uL Calcium (8.4-10.2) mg/dL Total Protein (6.3-8.2) g/dL Albumin (3.5-5.0) g/dL Urine Protein Trace H (Negative) Urine Ketones 1+ H (Negative) Ur Leukocyte Esterase Small H (Negative) Urine Mucus Moderate H (None) /hpf 04/09/20 Range/Units 06:52 WBC (3.8-10.6) k/uL Neutrophils # (1.3-7.7) k/uL Calcium 7.8 L (8.4-10.2) mg/dL Total Protein 5.3 L (6.3-8.2) g/dL Albumin 3.0 L (3.5-5.0) g/dL Urine Protein (Negative) Urine Ketones (Negative) Ur Leukocyte Esterase (Negative) Urine Mucus (None) /hpf Assessment and Plan Assessment: Sepsis secondary to diverticulitis with peridiverticular 5.5 cm abscess -Continue with meropenem 1 g every 8 hourly in setting of penicillin ALLERGY, consult infectious disease -Continue with normal saline -Scheduled for CT-guided aspiration today. -Gen. surgery following closely -Follow-up blood cultures -Pain control with morphine when necessary Chronic conditions: Hyperlipidemia, mild intermittent asthma -Continue with home Pravachol 40 mg daily -DuoNeb when necessary DVT prophylaxis -IPCDs
[2020-04-09] MEDS: MORPHINE SULFATE 2 MG/ML SYRINGE IV PRN ×2 (12:19→15:20)
[2020-04-09 12:52] LABS: ALT 24 U/L (4-49); AST 30 U/L (17-59); African American GFR (CKD) >90 (>60 ml/min/1.73 sqM); Albumin 3.3 g/dL (3.5-5.0); Alkaline Phosphatase 50 U/L (38-126); Anion Gap 5 mmol/L; Blood Urea Nitrogen 9 mg/dL (9-20); Calcium 8.1 mg/dL (8.4-10.2); Carbon Dioxide 27 mmol/L (22-30); Chloride 106 mmol/L (98-107); Glucose 85 mg/dL (74-99); Non-African American GFR(CKD) 89 (>60 ml/min/1.73 sqM); Sodium 138 mmol/L (137-145); Total Bilirubin 0.5 mg/dL (0.2-1.3); Total Protein 5.8 g/dL (6.3-8.2)
[2020-04-09] MEDS: CEFEPIME 2 GM in SODIUM CHLORIDE 0.9% 100 ML IVPB SCH ×2 (14:38→21:21)
[2020-04-09] MEDS: metroNIDAZOLE-NS PMX 500 MG in SALINE 1 100ML.BAG IVPB SCH ×2 (15:24→23:09)
[2020-04-09] MEDS: MORPHINE SULFATE 4 MG/ML SYRINGE IVP PRN ×2 (17:52→21:28)
[2020-04-09] MEDS: PRAVASTATIN SODIUM 40 MG TAB PO SCH (21:21)
[2020-04-10] MEDS: MORPHINE SULFATE 4 MG/ML SYRINGE IVP PRN ×3 (00:52→10:38)
--- NOTE | 2020-04-10 02:12 | CONS ---
CONSULTATION DATE OF DICTATION: 04/09/2020 REASON FOR CONSULTATION: Diverticulitis with diverticular abscess HISTORY OF PRESENT ILLNESS: The patient is a 54-year-old pleasant white male with history of hypertension, hyperlipidemia, came into the emergency room complaining of abdominal pain, fever for the last one week duration. The patient was diagnosed with acute sigmoid diverticulitis on an outpatient basis and was treated with Cipro and Flagyl for 7 days. He continued to have worsening symptoms and had a fever of 101 yesterday and hence came into the emergency room. He had a CT of the abdomen and pelvis done that showed severe sigmoid diverticulitis with a 5.5 cm abscess anterior to the mid sigmoid colon. He was seen by Surgery. He underwent a CT-guided drainage of the abscess with a drainage catheter placement today. He still continues to have severe abdominal pain. Initial labs showed a WBC of 13.8 and hemoglobin of 15.9. PAST MEDICAL HISTORY: Significant for hypertension, hyperlipidemia. MEDICATIONS AT HOME: Aspirin, Pravachol, vitamin D3, Cipro, Flagyl and multivitamin. ALLERGIES: PENICILLIN. SOCIAL HISTORY: Chronic smoker. Occasionally drinks alcohol. FAMILY HISTORY: Father had DVT. Mother also had DVT. Son had DVT. PAST SURGICAL HISTORY: Right thumb surgery and facial surgery. REVIEW OF SYSTEMS: CARDIOPULMONARY: No chest pain or shortness of breath. GENITOURINARY: No dysuria or hematuria. MUSCULOSKELETAL: Unremarkable. SKIN: Unremarkable. PSYCHIATRIC: Unremarkable. NEUROLOGY: Unremarkable. ENT/VISION: Unremarkable. CONSTITUTIONAL: Low-grade fever and chills but no night sweats. PHYSICAL EXAMINATION: He appears comfortable. No apparent distress. Vital signs are stable. Blood pressure 123/74, pulse rate 86, temperature 100.4. HEENT: Examination unremarkable. Conjunctivae pink. Sclerae anicteric. Oral cavity no lesions. NECK: No JVD or lymph node enlargement. CHEST: Clear to auscultation. HEART: Regular rate and rhythm. ABDOMEN: Soft. There was severe tenderness in the suprapubic area as well as left lower quadrant area. EXTREMITIES: No pedal edema. NEUROLOGIC: Alert and oriented x3. No focal deficits. LABS: Labs at the time of admission to the hospital: WBC 13.8, hemoglobin 15.9, platelets normal. Basic metabolic panel is within normal limits. Today hemoglobin is . IMPRESSION: Acute sigmoid diverticulitis complicated with a 5.5 cm abscess anterior to the mid sigmoid colon. Status post CT-guided catheter drainage this afternoon. On broad- spectrum antibiotics. He is feeling somewhat better. RECOMMENDATIONS: 1. Continue antibiotics. 2. Repeat labs in the morning. 3. Pain medications, as needed. 4. Possible repeat CT scan in a few days. 5. We will follow with you closely. Thank you for this consultation. MMODL / IJN: [id number] /
[2020-04-10] MEDS ORDERED: ACETAMINOPHEN TAB 325 MG TAB PO PRN (02:17)
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
[2020-04-10 07:34] LABS: Basophils # (A) 0.1 k/uL (0-0.2); Basophils % (A) 0 %; Eosinophils # (A) 0.3 k/uL (0-0.7); Eosinophils % (A) 3 %; HCT 43.8 % (39.0-53.0); HGB 14.3 gm/dL (13.0-17.5); Lymphocytes # (A) 1.7 k/uL (1.0-4.8); Lymphocytes % (A) 14 %; MCHC 32.7 g/dL (31.0-37.0); MCV 97.9 fL (80.0-100.0); Mean Platelet Volume 6.6; Monocytes % (A) 8 %; Neutrophils # (A) 9.2 k/uL (1.3-7.7); Neutrophils % (A) 74 %; Platelet Count 316 k/uL (150-450); RBC 4.47 m/uL (4.30-5.90); RDW 12.4 % (11.5-15.5); WBC 12.5 k/uL (3.8-10.6)
[2020-04-10] MEDS: metroNIDAZOLE-NS PMX 500 MG in SALINE 1 100ML.BAG IVPB SCH ×2 (07:58→15:28)
[2020-04-10] MEDS: SODIUM CHLORIDE 0.9% 1,000 ML IV SCH (07:59)
--- NOTE | 2020-04-10 08:32 | P.PCN ---
Date of Procedure: 04/09/20 Preoperative Diagnosis: diverticulitis abscess Postoperative Diagnosis: same Procedure(s) Performed: CT guided pelvic catheter drainage Implants: 10FR 25 dm coiled catheter Anesthesia: local Surgeon: Miri Belle Estimated Blood Loss (ml): 1 Pathology: other Condition: stable Disposition: floor Operative Findings: 3.5 cm pelvic abscess targeted for drainage
[2020-04-10] MEDS: CEFEPIME 2 GM in SODIUM CHLORIDE 0.9% 100 ML IVPB SCH ×2 (09:07→20:24)
--- NOTE | 2020-04-10 09:57 | CT ---
EXAMINATION TYPE: CT guided abscess drainage DATE OF EXAM: 04/10/2020 HISTORY: Diverticular abscess COMPARISON: CT abdomen pelvis 04/08/2020 BI DEVELOPER: Dr. Miri Belle PROCEDURE: The procedure was discussed with the patient. The risks, complications, benefits, and alternatives we re discussed and any questions were answered. Informed consent was obtained. Preprocedure preliminary imaging demonstrated a 4.3 cm midline pelvic focal fluid collection with int ernal gas anterior to the sigmoid colon. Maximal barrier technique was utilized. The skin over suitable path to the abscess was localized wit h CT and the overlying skin prepped and draped. Lidocaine was used for local anesthesia. A skin jovanna k made with a scalpel. Access was gained using CT guidance with a 5FR 10cm one-step centesis cathete r, purulent material returned in the hub of the needle. A 0.035 inch wire was advanced and the acces s site was upsized. Subsequently an 10-FR drain was deployed within the abscess cavity. 20 cc of pur ulent material aspirated and sent for laboratory analysis. Catheter fixed in place with stay-fix tori ce and the cathter was attached to gravity drainage. No immediate complication. The patient remained in stable condition. Postprocedure preliminary imaging demonstrated catheter coiled within the pelvic fluid collection, an d no evidence of significant hemorrhage. Drain care orders placed in patient's chart. IMPRESSION: Status post CT-guided 10FR coiled catheter drainage of pelvic fluid collection. 20 cc of purulent mat erial sent for laboratory analysis.
--- NOTE | 2020-04-10 10:07 | P.PN ---
Subjective Progress Note Date: 04/10/20 Patient is doing fairly well this morning. He had a lot of changes with a documented fever of 101.4 last night. He denies any nausea or vomiting. Objective - Vital Signs Vital signs: Vital Signs Temp 98.5 F 04/10/20 07:00 Pulse 78 04/10/20 07:00 Resp 18 04/10/20 07:00 BP 94/56 04/10/20 07:00 Pulse Ox 96 04/10/20 07:00 Intake & Output 04/09/20 04/10/20 04/10/20 18:59 06:59 18:59 Output Total 20 Balance -20 Output: Drainage 20 Medial Abdomen 20 Other: Voiding Method Toilet Toilet # Voids 1 - Exam General: The patient is awake and alert, in no distress Eye: there is normal conjunctiva bilaterally. Neck: The neck is supple, there is no JVD. Cardiovascular: Normal S1-S2, no S3-S4, no murmurs. Respiratory: Lungs clear to auscultation bilaterally Gastrointestinal: Abdomen is soft, nontender. Drain in place Musculoskeletal: There is no pedal edema. Neurological:. Speech is normal. Skin: Skin is warm and dry - Labs CBC & Chem 7: 04/10/20 06:51 04/09/20 12:08 Labs: Abnormal Lab Results - Last 24 Hours (Table) 04/09/20 04/10/20 Range/Units 12:08 06:51 WBC 12.5 H (3.8-10.6) k/uL Neutrophils # 9.2 H (1.3-7.7) k/uL Calcium 8.1 L (8.4-10.2) mg/dL Total Protein 5.8 L (6.3-8.2) g/dL Albumin 3.3 L (3.5-5.0) g/dL Microbiology - Last 24 Hours (Table) 04/09/20 14:35 Gram Stain - Preliminary Aspirate Body Fluid Culture - Preliminary 04/09/20 14:35 Anaerobic Culture - Preliminary Aspirate 04/08/20 19:09 Blood Culture - Preliminary Blood No Growth after 24 hours Assessment and Plan Assessment: Sepsis secondary to diverticulitis with peridiverticular 5.5 cm abscess status post CT-guided drainage with drain in place. General surgery following closely. -Started on IV meropenem secondary to penicillin ALLERGY. Seen and evaluated by infectious disease. Antibiotic switched to IV cefepime and Flagyl awaiting culture results. -Pain control with morphine when necessary Chronic conditions: Hyperlipidemia, mild intermittent asthma -Continue with home Pravachol 40 mg daily -DuoNeb when necessary DVT prophylaxis -IPCDs
--- NOTE | 2020-04-10 12:32 | PN ---
PROGRESS NOTE DATE OF SERVICE: 04/10/2020 Patient is a 54-year-old pleasant white male admitted to the hospital with acute abdominal pain and diagnosed with acute sigmoid diverticulitis with diverticular abscess. He underwent CT-guided drainage catheter, placement of the catheter yesterday and there was approximately 20 mL of serosanguineous fluid in the bag. He continues to complain of abdominal pain. He reports no nausea, vomiting. No chills. However, he had a fever of 101.5 last night. PHYSICAL EXAMINATION: Blood pressure 194/56, pulse is 78, temperature 101.5. HEENT: Examination unremarkable, conjunctivae are pink, sclerae nonicteric, oral cavity no lesions. NECK: No JVD or lymph node enlargement. CHEST: Clear to auscultation. HEART: Regular rate and rhythm. ABDOMEN: Tender, drainage catheter in place in the suprapubic area. EXTREMITIES: No pedal edema. NEUROLOGIC: Alert and oriented x3. No focal deficits. LABS: From today WBC 12.5, hemoglobin 14.3, platelets normal. Basic metabolic panel is within normal limits. IMPRESSION: Sigmoid diverticulitis with sigmoid abscess, status post CT-guided drainage yesterday with a catheter in place which is draining serosanguineous fluid and some purulent material, on broad-spectrum antibiotics. He continues to have fever and mild leukocytosis. RECOMMENDATIONS: 1. Continue with broad-spectrum antibiotics. 2. Monitor labs closely. 3. Continue with a clear liquid diet for now. 4. Will follow with you. Thank you for this consultation. MMODL / IJN: [id number] /
[2020-04-10] MEDS: HYDROcodone/APAP 5-325MG 1 EACH TAB PO PRN ×2 (14:37→19:05)
--- NOTE | 2020-04-10 16:16 | P.PN ---
Progress Note - Text Progress Note Date: 04/10/20 The patient feels better today. He still has complaints of left lower quadrant pain and rates it as a 5 out of 10. On exam vessels are stable. Abdomen soft. There is tenderness left lower quadrant. Diverticulitis with abscess. Patient he received IV antibiotic. He'll remain nothing by mouth today.
[2020-04-10] MEDS: PRAVASTATIN SODIUM 40 MG TAB PO SCH (20:24)
[2020-04-11] MEDS: HYDROcodone/APAP 5-325MG 1 EACH TAB PO PRN ×4 (00:11→19:10)
[2020-04-11] MEDS: metroNIDAZOLE-NS PMX 500 MG in SALINE 1 100ML.BAG IVPB SCH ×4 (00:12→23:20)
--- NOTE | 2020-04-11 00:39 | PN ---
PROGRESS NOTE DATE OF SERVICE: 04/10/2020 REASON FOR FOLLOWUP: Perforated diverticulitis with intraabdominal abscess. INTERVAL HISTORY: Patient did spike a fever this morning of 101.5. The patient has been afebrile since then. The patient is status post aspiration of the abscess. Cultures have been obtained which are currently pending. Patient denies having any chest pain or shortness of breath or cough. Still having abdominal pain, but no worsening. PHYSICAL EXAMINATION: Blood pressure 139/63 with a pulse of 88, temperature 98.3. He is 98% on room air. General description is a middle-aged male lying in bed in no distress. RESPIRATORY SYSTEM: Unlabored breathing, is clear to auscultation anteriorly. HEART: S1, S2. Regular rate and rhythm. ABDOMEN: Soft, still photographer in the lower quadrant area. EXTREMITIES: No edema of the feet. LABS: Hemoglobin 14.3, white count 12.5, BUN of 9, creatinine 0.96. Blood culture so far negative. DIAGNOSTIC IMPRESSION AND PLAN: Patient with abdominal abscess from ruptured diverticulitis, status post CT-guided drainage. Patient with PENICILLIN allergy. Currently covered with cefepime and Flagyl to continue. Waiting for the culture to finalize to determine discharge antibiotic. Likely need a PICC line for outpatient antibiotic. Continue supportive care. MMODL / IJN: [id number] /
[2020-04-11 07:38] LABS: Basophils % (A) 0 %; Eosinophils # (A) 0.6 k/uL (0-0.7); Eosinophils % (A) 5 %; HCT 44.8 % (39.0-53.0); Lymphocytes # (A) 1.6 k/uL (1.0-4.8); Lymphocytes % (A) 13 %; MCH 32.4 pg (25.0-35.0); MCHC 33.6 g/dL (31.0-37.0); MCV 96.4 fL (80.0-100.0); Mean Platelet Volume 6.7; Monocytes # (A) 0.8 k/uL (0-1.0); Monocytes % (A) 7 %; Neutrophils # (A) 8.6 k/uL (1.3-7.7); Neutrophils % (A) 73 %; Platelet Count 328 k/uL (150-450); RBC 4.64 m/uL (4.30-5.90); RDW 12.3 % (11.5-15.5); WBC 11.8 k/uL (3.8-10.6)
[2020-04-11 08:00] LABS: African American GFR (CKD) >90 (>60 ml/min/1.73 sqM); Anion Gap 6 mmol/L; Blood Urea Nitrogen 7 mg/dL (9-20); Calcium 8.1 mg/dL (8.4-10.2); Carbon Dioxide 28 mmol/L (22-30); Chloride 104 mmol/L (98-107); Glucose 87 mg/dL (74-99); Non-African American GFR(CKD) >90 (>60 ml/min/1.73 sqM); Sodium 138 mmol/L (137-145)
[2020-04-11] MEDS: CEFEPIME 2 GM in SODIUM CHLORIDE 0.9% 100 ML IVPB SCH ×2 (09:17→20:45)
[2020-04-11 10:59] VITALS: BMI 33.6
--- NOTE | 2020-04-11 11:37 | P.PN ---
Subjective Progress Note Date: 04/11/20 Principal diagnosis: CC: Abdominal pain Patient has been afebrile in the past 24 hours. He says that he is tolerating his clear liquid diet. Patient also stated that there is drainage from his drainage catheter. Patient states that his abdominal pain is improving however he still has abdominal pain. He denies any nausea and vomiting. His body fluid culture is growing alpha hemolytic streptococcus. Objective - Vital Signs Vital signs: Vital Signs Temp 98.5 F 04/11/20 07:00 Pulse 75 04/11/20 07:00 Resp 17 04/11/20 07:00 BP 123/77 04/11/20 07:00 Pulse Ox 95 04/11/20 07:00 Intake & Output 04/10/20 04/11/20 04/11/20 18:59 06:59 18:59 Intake Total 300 300 Output Total 40 Balance 260 300 Weight 97.522 kg Intake: IV 100 100 Cefepime 2 gm In Sodium 100 100 Chloride 0.9% 100 ml @ 200 mls/hr IVPB Q12HR [facility] Rx#:[id number] Intake, IV Titration 200 200 Amount metroNIDAZOLE-NS PMX 500 200 200 mg In Saline 1 100ml.bag @ 100 mls/hr IVPB Q8HR [facility] Rx#:[id number] Output: Drainage 40 Medial Abdomen 40 Other: Voiding Method Toilet # Voids 2 - Exam General examination - Alert and Oriented 3 in NAD Heart - + S1S2 no murmurs Lungs - Clear to auscultation Abdomen soft tenderness to palpate in the lower quadrants, ND +ve BS, + drainage catheter with serosanguineous fluid Extremities - No edema 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 Psych - Calm and cooperative - Labs CBC & Chem 7: 04/11/20 06:41 04/11/20 06:41 Labs: Abnormal Lab Results - Last 24 Hours (Table) 04/11/20 04/11/20 Range/Units 06:41 06:41 WBC 11.8 H (3.8-10.6) k/uL Neutrophils # 8.6 H (1.3-7.7) k/uL BUN 7 L (9-20) mg/dL Calcium 8.1 L (8.4-10.2) mg/dL Microbiology - Last 24 Hours (Table) 04/09/20 14:35 Gram Stain - Preliminary Aspirate Body Fluid Culture - Preliminary Alpha Hemolytic Streptococcus 04/08/20 19:09 Blood Culture - Preliminary Blood No Growth after 48 hours Assessment and Plan Assessment: Sepsis secondary to diverticulitis with peridiverticular 5.5 cm abscess status post CT-guided drainage with drain in place. General surgery following closely. -Started on IV meropenem secondary to penicillin ALLERGY. Seen and evaluated by infectious disease. Antibiotic switched to IV cefepime and Flagyl awaiting culture results. Culture growing alphahemolytic streptococcus. Follow-up until finalized -Pain control with morphine when necessary Chronic conditions: Hyperlipidemia, mild intermittent asthma -Continue with home Pravachol 40 mg daily -DuoNeb when necessary DVT prophylaxis -IPCDs
--- NOTE | 2020-04-11 19:37 | P.PN ---
Progress Note - Text Progress Note Date: 04/11/20 Patient states he feels better. On exam vitals are stable. Abdomen soft. There is less left lower quadrant pain. Improving diverticulitis with CT-guided drainage abscess. Patient will start on full liquid diet. He'll continue IV antibiotic.
--- NOTE | 2020-04-11 20:39 | PN ---
PROGRESS NOTE DATE OF DICTATION: 04/11/2020 This patient is a 54-year-old pleasant white male admitted to the hospital with acute sigmoid diverticulitis complicated with a sigmoid abscess, for which he underwent CT- guided catheter placement. He still continues to have abdominal pain, but fever has resolved. No nausea, vomiting. Tolerating clear liquid diet well. PHYSICAL EXAMINATION: Appears comfortable. No apparent distress. Blood pressure 123/71, pulse rate 65, temperature 98.5. HEENT examination unremarkable. Conjunctivae pink. Sclerae anicteric. Oral cavity no lesions. NECK: No JVD or lymph node enlargement. CHEST: Clear to auscultation. HEART: Regular rate and rhythm. ABDOMEN: Soft. Bowel sounds are positive. No organomegaly. Mild tenderness in the right lower quadrant area. EXTREMITIES: No pedal edema. LABS: Labs done from today show WBC 11.8, hemoglobin 15, platelets normal. Basic metabolic panel is within normal limits. IMPRESSION: Sigmoid diverticulitis complicated with a diverticular abscess, status post CT-guided catheter placement. Still draining approximately 20 mL of serosanguineous fluid with some purulent material noted. On broad-spectrum antibiotics. He is feeling better. Fever has resolved. He still has mild leukocytosis. Surgery is following the patient closely. RECOMMENDATIONS: 1. Continue with IV antibiotics. 2. Consider repeat CT of the abdomen and pelvis in 1 to 2 days to evaluate for resolution of the abscess. 3. Continue with clear liquids. 4. Will follow with you closely. Thank you for this consultation. MMODL / IJN: [id number] /
[2020-04-11] MEDS: PRAVASTATIN SODIUM 40 MG TAB PO SCH (20:44)
--- NOTE | 2020-04-12 01:15 | PN ---
PROGRESS NOTE DATE OF SERVICE: 04/11/2020 REASON FOR FOLLOWUP: Abdominal abscess from ruptured diverticulitis. INTERVAL HISTORY: The patient is currently afebrile. Patient has been breathing comfortably. The patient denies having any chest pain or shortness of breath or cough. Abdominal pain is currently controlled. No vomiting or any diarrhea. PHYSICAL EXAMINATION: His vital signs are stable. General description is a middle-aged male lying in bed in no distress. RESPIRATORY SYSTEM: Unlabored breathing, clear to auscultation anteriorly. HEART: S1, S2. Regular rate and rhythm. ABDOMEN: Soft, mildly distended. No guarding or rigidity. LABS: Hemoglobin is 15, white count 11.8. BUN of 7, creatinine 0.92. Abdominal culture with alpha hemolytic Streptococcus. DIAGNOSTIC IMPRESSION AND PLAN: Patient with abdominal abscess from a ruptured diverticulitis, status post CT-guided drainage. Culture with significant Alpha Hemolytic Streptococcus sensitive pathogen. Patient is on cefepime. Plan is for Rocephin 2 grams daily along with oral Flagyl for at least 2 weeks for which a Midline will be placed. MMODL / IJN: [id number] /
[2020-04-12] MEDS: metroNIDAZOLE-NS PMX 500 MG in SALINE 1 100ML.BAG IVPB SCH ×2 (07:49→15:15)
[2020-04-12] MEDS: HYDROcodone/APAP 5-325MG 1 EACH TAB PO PRN ×3 (07:55→20:04)
[2020-04-12 08:43] LABS: Basophils # (A) 0.1 k/uL (0-0.2); Basophils % (A) 1 %; Eosinophils # (A) 0.5 k/uL (0-0.7); Eosinophils % (A) 5 %; HCT 43.4 % (39.0-53.0); HGB 14.3 gm/dL (13.0-17.5); Lymphocytes # (A) 1.3 k/uL (1.0-4.8); Lymphocytes % (A) 12 %; MCH 31.1 pg (25.0-35.0); MCV 94.2 fL (80.0-100.0); Monocytes # (A) 0.7 k/uL (0-1.0); Monocytes % (A) 6 %; Neutrophils % (A) 74 %; Platelet Count 349 k/uL (150-450); RDW 12.3 % (11.5-15.5); WBC 10.8 k/uL (3.8-10.6)
[2020-04-12] MEDS: CEFEPIME 2 GM in SODIUM CHLORIDE 0.9% 100 ML IVPB SCH (08:57)
[2020-04-12 09:22] LABS: African American GFR (CKD) >90 (>60 ml/min/1.73 sqM); Anion Gap 6 mmol/L; Blood Urea Nitrogen 6 mg/dL (9-20); Calcium 8.2 mg/dL (8.4-10.2); Carbon Dioxide 28 mmol/L (22-30); Chloride 104 mmol/L (98-107); Glucose 89 mg/dL (74-99); Non-African American GFR(CKD) >90 (>60 ml/min/1.73 sqM); Potassium 4.4 mmol/L (3.5-5.1); Sodium 138 mmol/L (137-145)
--- NOTE | 2020-04-12 12:01 | P.PN ---
Progress Note - Text Progress Note Date: 04/12/20 The patient feels better. He still has some mild left lower quadrant pain. On exam vital signs are stable. Abdomen soft. There is tenderness left lower quadrant. There is no rebound or guarding. Status post radiologic drainage of diverticular abscess. Patient received IV antibiotic. He will remain on full liquids.
--- NOTE | 2020-04-12 13:07 | P.PN ---
Subjective Progress Note Date: 04/12/20 Principal diagnosis: CC: Abdominal pain patient says that he still has abdominal pain. He states that he got full quickly after a liquid diet. Patient also reports that he has not had a bowel movement since 5 days. However today was his first day of liquid diet. Previously patient was either nothing by mouth or on clear liquid diet. Patient denies any nausea and vomiting. Patient seen by general surgery who recommended to keep the patient on a full liquid diet. GI recommends repeating computed tomography scan so I will order computed tomography scan. Objective - Vital Signs Vital signs: Vital Signs Temp 98.3 F 04/12/20 07:00 Pulse 71 04/12/20 07:00 Resp 17 04/12/20 07:55 BP 120/79 04/12/20 07:00 Pulse Ox 96 04/12/20 07:00 Intake & Output 04/11/20 04/12/20 04/12/20 18:59 06:59 18:59 Intake Total 300 100 Output Total 30 15 Balance 270 100 -15 Weight 97.522 kg Intake: IV 100 100 Cefepime 2 gm In Sodium 100 100 Chloride 0.9% 100 ml @ 200 mls/hr IVPB Q12HR [facility] Rx#:[id number] Intake, IV Titration 200 Amount metroNIDAZOLE-NS PMX 500 200 mg In Saline 1 100ml.bag @ 100 mls/hr IVPB Q8HR [facility] Rx#:[id number] Output: Drainage 30 15 Medial Abdomen 30 15 Other: Voiding Method Toilet Toilet # Voids 2 - Exam General examination - Alert and Oriented 3 in NAD Heart - + S1S2 no murmurs Lungs - Clear to auscultation Abdomen soft tenderness to palpate in the left lower quadrants, ND +ve BS, + d rainage catheter with serosanguineous fluid Extremities - No edema 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 - Moving 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 4 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 spontaneously Psych - Calm and cooperative - Labs CBC & Chem 7: 04/12/20 07:16 04/12/20 07:16 Labs: Abnormal Lab Results - Last 24 Hours (Table) 04/12/20 04/12/20 Range/Units 07:16 07:16 WBC 10.8 H (3.8-10.6) k/uL Neutrophils # 8.0 H (1.3-7.7) k/uL BUN 6 L (9-20) mg/dL Calcium 8.2 L (8.4-10.2) mg/dL Microbiology - Last 24 Hours (Table) 04/09/20 14:35 Gram Stain - Final Aspirate Body Fluid Culture - Final Alpha Hemolytic Streptococcus 04/09/20 14:35 Anaerobic Culture - Preliminary Aspirate 04/08/20 19:09 Blood Culture - Preliminary Blood No Growth after 72 hours Assessment and Plan Assessment: Sepsis secondary to diverticulitis with peridiverticular 5.5 cm abscess status post CT-guided drainage with drain in place. -Patient was on IV cefepime and Flagyl. ID switched cefepime to Rocephin on 04/12/2020. ID recommends 2 weeks of IV Rocephin and Flagyl (start date 04/12). midline ordered. Case management has arranged for home infusion -Culture from abscess grew alpha hemolytic streptococcus -GI recommends to repeat CT abdomen and pelvis -Gen. surgery recommends to keep patient on full liquid diet -Pain control with morphine when necessary Chronic conditions: Hyperlipidemia, mild intermittent asthma -Continue with home Pravachol 40 mg daily -DuoNeb when necessary DVT prophylaxis -IPCDs
--- NOTE | 2020-04-12 13:16 | PN ---
PROGRESS NOTE DATE OF SERVICE: 04/12/2020 REASON FOR FOLLOWUP: Abdominal abscess from perforated diverticulitis. INTERVAL HISTORY: Patient is currently afebrile. The patient is feeling better, breathing comfortably, overall pain and discomfort to the abdominal area has improved. No nausea, vomiting and output in the drainage catheter has decreased. PHYSICAL EXAMINATION: Blood pressure 120/79 with a pulse of 71, temperature 98.3, he is 96% on room air. General description is a middle-aged male, lying in bed in no distress. RESPIRATORY SYSTEM: Unlabored breathing, clear to auscultation anteriorly. HEART: S1, S2. Regular rate and rhythm. ABDOMEN: Soft. No tenderness. Minimal tenderness. No gurading, no rigidity. LABS: Hemoglobin is 14.1, white count 10.8, BUN of 6, creatinine 0.88. DIAGNOSTIC IMPRESSION AND PLAN: Patient with abdominal abscess from a ruptured diverticulitis, status post CT-guided drainage of this abscess. Patient white count normalized. Antibiotic will be switched to 2 g daily along with oral Flagyl and on discharge antibiotic will be Rocephin 2 g daily along with oral Flagyl which has been arranged for the patient. Continue supportive care. MMODL / IJN: [id number] /
--- NOTE | 2020-04-12 15:14 | CT ---
EXAMINATION TYPE: CT abdomen pelvis w con DATE OF EXAM: 04/12/2020 COMPARISON: CT-guided abscess drainage 04/09/2020. CT abdomen pelvis 04/08/2020. HISTORY: Re-evaluate diverticular abscess. CT DLP: 1366.4 mGycm Automated exposure control for dose reduction was used. TECHNIQUE: Helical acquisition of images was performed from the lung bases through the pelvis. CONTRAST: Performed without Oral Contrast and with IV Contrast, patient injected with 100 mL of Isovue 300. FINDINGS: LUNG BASES: No significant abnormality is appreciated. LIVER/GB: Fatty liver. Too small to characterize hypodense lesion at the right dome. PANCREAS: No significant abnormality is seen. SPLEEN: No significant abnormality is seen. ADRENALS: No significant abnormality is seen. KIDNEYS: No significant abnormality is seen. BOWEL: No evidence of bowel obstruction. Colonic diverticulosis. Redemonstrated sigmoid acute diverti culitis with decreased associated fluid, inflammation, and foci of gas, with persistent drainage cath eter. Linear area of contrast density associated with small bowel loops in the mid lower abdomen (201 :65). PERITONEUM: Foci of free air are seen within the fat-containing umbilical hernia and periumbilical m esentery, with a few tiny foci of air in the region of the midline lower abdomen percutaneous coiled drainage catheter. The distal loop of the drainage catheter again lies just anterior to the sigmoid c olon. There has been significant decrease of the focal fluid collection and gas in this region, with inflammatory stranding and minimal residual fluid. Bilateral fat-containing inguinal hernias. ADENOPATHY: None visualized REPRODUCTIVE ORGANS: No significant abnormality is seen URINARY BLADDER: No significant abnormality is seen. VASCULATURE: No abdominal aortic aneurysm. Mild calcified atherosclerotic disease. OSSEOUS STRUCTURES: Degenerative changes of the spine. IMPRESSION: 1. Percutaneous midline lower abdominal coiled catheter distal tip just anterior to the sigmoid colo n. There has been significant decrease in size of the diverticular abscess focal fluid and gas collec tion, with inflammatory stranding and trace residual fluid in the region of the drainage catheter. 2. Small foci of gas within the fat-containing umbilical hernia and mesentery mildly increased versu s 04/08/2020, which more likely related to iatrogenic drainage catheter flushing than bowel perforatio n. 3. Linear area of contrast opacity associated with mid lower abdominal small bowel loops. Findings m ay be related to retained oral contrast however are of uncertain etiology or clinical significance. 4. Fatty liver.
--- NOTE | 2020-04-12 18:52 | PN ---
PROGRESS NOTE DATE OF DICTATION: 04/12/2020 This patient is a 54-year-old pleasant white male admitted to the hospital with acute sigmoid diverticulitis complicated with a diverticular abscess, for which he underwent CT-guided catheter and drainage. He continues to have abdominal pain, but overall he is feeling better. No fever, chills or night sweats. He had a repeat CT scan done today that showed acute sigmoid diverticulitis with decreased associated fluid and inflammation, and there was a significant decrease in the size of the diverticular abscess. PHYSICAL EXAMINATION: He appears comfortable. VITAL SIGNS: Stable. Blood pressure is 128/80, pulse rate 68, temperature 98.1. HEENT examination unremarkable. Conjunctivae pink. Sclerae anicteric. Oral cavity no lesions. NECK: No JVD or lymph node enlargement. CHEST: Clear to auscultation. HEART: Regular rate and rhythm. ABDOMEN: Soft. Severe tenderness in the suprapubic area. Catheter placed in the suprapubic area. EXTREMITIES: No pedal edema. NEUROLOGIC: Alert and oriented x3. No focal deficits. LABS: Labs from today show WBC 10.8, hemoglobin 14.3, platelets normal. Basic metabolic panel is within normal limits. IMPRESSION: Acute sigmoid diverticulitis complicated with diverticular abscess, status post CT- guided catheter and drainage done [address] scan showed significant decrease in the size of diverticular abscess, but he has persistent sigmoid diverticulitis. RECOMMENDATIONS: 1. Continue with a clear liquid diet. 2. Await surgical recommendations. 3. Continue broad-spectrum antibiotics. 4. Repeat labs in the morning. 5. Will follow with you closely. Thank you for this consultation. MMODL / IJN: [id number] /
[2020-04-12] MEDS: PRAVASTATIN SODIUM 40 MG TAB PO SCH (21:28)
[2020-04-13] MEDS: metroNIDAZOLE-NS PMX 500 MG in SALINE 1 100ML.BAG IVPB SCH ×4 (00:34→23:27)
[2020-04-13 08:11] LABS: Basophils # (A) 0.1 k/uL (0-0.2); Basophils % (A) 1 %; Eosinophils # (A) 0.4 k/uL (0-0.7); Eosinophils % (A) 4 %; HCT 45.2 % (39.0-53.0); HGB 14.9 gm/dL (13.0-17.5); Lymphocytes # (A) 1.2 k/uL (1.0-4.8); Lymphocytes % (A) 12 %; MCH 31.2 pg (25.0-35.0); MCV 94.5 fL (80.0-100.0); Mean Platelet Volume 6.8; Monocytes # (A) 0.7 k/uL (0-1.0); Monocytes % (A) 7 %; Neutrophils # (A) 7.5 k/uL (1.3-7.7); Neutrophils % (A) 75 %; Platelet Count 376 k/uL (150-450); RBC 4.78 m/uL (4.30-5.90); RDW 12.4 % (11.5-15.5)
[2020-04-13 08:24] LABS: African American GFR (CKD) >90 (>60 ml/min/1.73 sqM); Anion Gap 5 mmol/L; Blood Urea Nitrogen 8 mg/dL (9-20); Calcium 8.6 mg/dL (8.4-10.2); Carbon Dioxide 31 mmol/L (22-30); Chloride 103 mmol/L (98-107); Glucose 103 mg/dL (74-99); Magnesium 2.1 mg/dL (1.6-2.3); Non-African American GFR(CKD) >90 (>60 ml/min/1.73 sqM); Potassium 4.5 mmol/L (3.5-5.1); Sodium 139 mmol/L (137-145)
[2020-04-13] MEDS: HYDROcodone/APAP 5-325MG 1 EACH TAB PO PRN ×2 (08:37→19:23)
--- NOTE | 2020-04-13 11:26 | P.PN ---
Subjective Progress Note Date: 04/13/20 Principal diagnosis: CC: Abdominal pain Patient says that he still has abdominal pain without much improvement. Patient had a computed tomography scan done yesterday which showed that the sigmoid abscess has improved however there is still significant diverticulitis. Patient has been able to tolerate his current diet. Objective - Vital Signs Vital signs: Vital Signs Temp 97.9 F 04/13/20 07:00 Pulse 83 04/13/20 07:00 Resp 18 04/13/20 07:00 BP 131/89 04/13/20 07:00 Pulse Ox 94 L 04/13/20 07:00 Intake & Output 04/12/20 04/13/20 04/13/20 18:59 06:59 18:59 Intake Total 220 Output Total 15 15 Balance -15 205 Intake: Intake, IV Titration 100 Amount metroNIDAZOLE-NS PMX 500 100 mg In Saline 1 100ml.bag @ 100 mls/hr IVPB Q8HR [facility] Rx#:[id number] Oral 120 Output: Drainage 15 15 Medial Abdomen 15 15 Other: Voiding Method Toilet Toilet # Voids 3 1 - Exam General examination - Alert and Oriented 3 in NAD Heart - + S1S2 no murmurs Lungs - Clear to auscultation Abdomen soft tenderness to palpate in the left lower quadrants, ND +ve BS, + drainage catheter with serosanguineous fluid Extremities - No edema 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 -Patient was on IV cefepime and Flagyl. ID switched cefepime to Rocephin on 04/12/2020. ID recommends 2 weeks of IV Rocephin and Flagyl (start date 04/12). midline ordered. Case management has arranged for home infusion -Culture from abscess grew alpha hemolytic streptococcus -CT abdomen and pelvis shows that the abscess size has decreased however there was still significant diverticulitis -Gen. surgery recommends to keep patient on full liquid diet -Pain control with morphine when necessary Chronic conditions: Hyperlipidemia, mild intermittent asthma -Continue with home Pravachol 40 mg daily -DuoNeb when necessary DVT prophylaxis -IPCDs
--- NOTE | 2020-04-13 14:23 | P.PN ---
Subjective Progress Note Date: 04/13/20 CHIEF COMPLAINT: Diverticulitis HISTORY OF PRESENT ILLNESS: The patient is a 54-year-old male status post CT guided drainage of diverticular abscess, 04/10/20. His pain has moderately improved since admission but still sore. He is on liquid diet. ROS: No reports of nausea and vomiting. No bowel movements. No fevers or chills. No new chest pain. No productive sputum PHYSICAL EXAM: VITAL SIGNS: Reviewed CONSTITUTIONAL: Well developed and in no acute distress. EYES: Conjuctivae without sclera icterus. Extraocular movements grossly intact. HEAD, EARS, NOSE, THROAT: Moist buccal mucosa. Head is atraumatic, normocephalic. Hears conversational speech. No nasal drainage. NECK: Supple. No thyroidomegaly. RESPIRATORY: Non-labored respirations and equal bilateral excursions. CARDIOVASCULAR: Palpable 2+ radial pulses. ABDOMEN: No peritonitis. Bri-umbilical tenderness. MUSCULOSKELETAL: No gross deformity of the lower extremities noted. No clubbing. No cyanosis. SKIN: Good skin turgor. Well perfused. NEUROLOGIC: Cranial nerves II through XII grossly intact. No focal or lateralizing signs. PSYCH: Appropriate affect. Alert and oriented to person, place and time. CLINICAL LABS: White blood cell count normal 10.0 from 10.8, yesterday. STUDIES: CT of the abdomen and pelvis and pending review demonstrated collapse of fluid collection above the bladder and sigmoid colon. No free air. ASSESSMENT: 1. Diverticulitis with abscess PLAN: 1. Continue diet 2. Continue antibiotics Objective - Vital Signs Vital signs: Vital Signs Temp 97.9 F 04/13/20 07:00 Pulse 83 04/13/20 07:00 Resp 18 04/13/20 07:00 BP 131/89 04/13/20 07:00 Pulse Ox 94 L 04/13/20 07:00 Intake & Output 04/12/20 04/13/20 04/13/20 18:59 06:59 18:59 Intake Total 220 Output Total 15 15 Balance -15 205 Intake: Intake, IV Titration 100 Amount metroNIDAZOLE-NS PMX 500 100 mg In Saline 1 100ml.bag @ 100 mls/hr IVPB Q8HR [facility] Rx#:[id number] Oral 120 Output: Drainage 15 15 Medial Abdomen 15 15 Other: Voiding Method Toilet Toilet # Voids 3 1 - Labs CBC & Chem 7: 04/13/20 07:49 04/13/20 07:49 Labs: Abnormal Lab Results - Last 24 Hours (Table) 04/13/20 Range/Units 07:49 Carbon Dioxide 31 H (22-30) mmol/L BUN 8 L (9-20) mg/dL Glucose 103 H (74-99) mg/dL Microbiology - Last 24 Hours (Table) 04/08/20 19:09 Blood Culture - Preliminary Blood No Growth after 96 hours Assessment and Plan (1) Abscess of sigmoid colon due to diverticulitis Current Visit: Yes Status: Acute Code(s): K57.20 - DVTRCLI OF LG INT W PERFORATION AND ABSCESS W/O BLEEDING SNOMED Code(s): 0082084707158838
--- NOTE | 2020-04-13 17:35 | PN ---
PROGRESS NOTE DATE OF SERVICE: 04/13/2020 Patient is a 54-year-old white male admitted to hospital with acute sigmoid diverticulitis with a large diverticular abscess for which he underwent CT-guided drainage, catheter placement five days ago. He still has some serosanguineous drainage noted in the catheter. He had a repeat CT done yesterday that showed significant improvement in the abscess, but persistence of acute diverticulitis. Remains on broad- spectrum antibiotics. Still complains of abdominal pain. PHYSICAL EXAMINATION: Appears comfortable, no apparent distress. Vital signs are stable. Blood pressure is 132/86, pulse rate 82 per minute and afebrile. HEENT examination unremarkable. Conjunctivae pink. Sclerae anicteric. Oral cavity no lesions. NECK: No JVD or lymph node enlargement. CHEST: Clear to auscultation. HEART: Regular rate and rhythm. ABDOMEN: Soft. Bowel sounds are positive. Mild tenderness in the epigastric and suprapubic area. EXTREMITIES: No pedal edema. NEUROLOGIC: Alert and oriented x3. No focal deficits. LABS: From today WBC 10, hemoglobin 14.9, platelets normal. Basic metabolic panel is within normal limits. IMPRESSION: Acute sigmoid diverticulitis complicated with diverticular abscess, status post drainage catheter placement five days ago, still draining in small quantities. Repeat CT scan shows improvement of the abscess site, but persistence of diverticulitis. RECOMMENDATION: 1. Continue antibiotics. 2. Further management per surgical service. 3. Advance diet as tolerated if okay with surgical service. 4. We will follow with you closely. Thank you for this consultation. MMODL / IJN: [id number] /
[2020-04-13] MEDS: PRAVASTATIN SODIUM 40 MG TAB PO SCH (21:02)
--- NOTE | 2020-04-13 22:44 | PN ---
PROGRESS NOTE DATE OF SERVICE: 04/13/2020 REASON FOR FOLLOWUP: Abdominal abscess from ruptured diverticulitis. INTERVAL HISTORY: Patient is currently afebrile. Patient is breathing comfortably. Denies having any chest pain. No shortness of breath or cough. Abdominal pain is currently controlled. No nausea, no vomiting. No diarrhea. PHYSICAL EXAMINATION: Blood pressure 132/84 with a pulse of 80, temperature 99.3. He is 96% on room air. General description is a middle-aged male lying in bed in no distress. Respiratory system: Unlabored breathing, clear to auscultation anteriorly. Heart S1, S2. Regular rate and rhythm. Abdomen soft, mildly distended. No guarding or rigidity. LABS: Hemoglobin is 14.9, white count 10.0, BUN of 8, creatinine 0.90. DIAGNOSTIC IMPRESSION AND PLAN: Patient with abdominal abscess from a ruptured sigmoid diverticulitis status post CT- guided drainage of this abscess. Abdominal culture has been positive for alpha hemolytic Streptococcus. Patient is covered with Rocephin 2 g daily and Flagyl. He will continue to finish a 2-week course of therapy. Monitor clinical course closely. MMODL / IJN: [id number] /
[2020-04-14] MEDS: metroNIDAZOLE-NS PMX 500 MG in SALINE 1 100ML.BAG IVPB SCH ×2 (08:01→16:03)
[2020-04-14 08:23] LABS: Basophils # (A) 0.1 k/uL (0-0.2); Basophils % (A) 1 %; Eosinophils # (A) 0.5 k/uL (0-0.7); Eosinophils % (A) 5 %; HCT 47.4 % (39.0-53.0); HGB 15.3 gm/dL (13.0-17.5); Lymphocytes # (A) 1.7 k/uL (1.0-4.8); Lymphocytes % (A) 16 %; MCH 30.7 pg (25.0-35.0); MCHC 32.3 g/dL (31.0-37.0); Monocytes # (A) 0.7 k/uL (0-1.0); Monocytes % (A) 7 %; Neutrophils # (A) 7.4 k/uL (1.3-7.7); Neutrophils % (A) 70 %; Platelet Count 404 k/uL (150-450); RBC 4.99 m/uL (4.30-5.90); RDW 12.5 % (11.5-15.5); WBC 10.6 k/uL (3.8-10.6)
[2020-04-14 08:33] LABS: African American GFR (CKD) >90 (>60 ml/min/1.73 sqM); Anion Gap 9 mmol/L; Blood Urea Nitrogen 8 mg/dL (9-20); Calcium 8.8 mg/dL (8.4-10.2); Carbon Dioxide 26 mmol/L (22-30); Chloride 103 mmol/L (98-107); Glucose 100 mg/dL (74-99); Non-African American GFR(CKD) >90 (>60 ml/min/1.73 sqM); Potassium 4.3 mmol/L (3.5-5.1); Sodium 138 mmol/L (137-145)
--- NOTE | 2020-04-14 09:59 | P.PN ---
Subjective Progress Note Date: 04/14/20 Principal diagnosis: CC: Abdominal pain Patient reports that his abdominal pain has improved and he is also tolerating a full liquid diet. Patient states that he only has pain upon palpation at the site of the drainage catheter but otherwise denies any pain. Currently surgery has the patient on full liquid diet. Patient did not get his midline placed on Wednesday. manufacturing finance manager did set up home infusion and patient has received his antibiotics at home. I discussed with the nurse who said that the midline will be placed on Wednesday. Objective - Vital Signs Vital signs: Vital Signs Temp 98.6 F 04/14/20 00:08 Pulse 68 04/14/20 00:08 Resp 14 04/14/20 00:08 BP 104/63 04/14/20 00:08 Pulse Ox 94 L 04/14/20 00:08 Intake & Output 04/13/20 04/14/20 04/14/20 18:59 06:59 18:59 Intake Total 540 340 Balance 540 340 Intake: Intake, IV Titration 100 Amount metroNIDAZOLE-NS PMX 500 100 mg In Saline 1 100ml.bag @ 100 mls/hr IVPB Q8HR [facility] Rx#:[id number] Oral 540 240 Other: Voiding Method Toilet # Voids 3 1 - Exam General examination - Alert and Oriented 3 in NAD Heart - + S1S2 no murmurs Lungs - Clear to auscultation Abdomen soft tenderness to palpate in the left lower quadrant, ND +ve BS, + drainage catheter with serosanguineous fluid Extremities - No edema SQUAD BOSS - Moving all 4 extremities spontaneously Psych - Calm and cooperative - Labs CBC & Chem 7: 04/14/20 07:30 04/14/20 07:30 Labs: Abnormal Lab Results - Last 24 Hours (Table) 04/14/20 Range/Units 07:30 BUN 8 L (9-20) mg/dL Glucose 100 H (74-99) mg/dL Microbiology - Last 24 Hours (Table) 04/09/20 14:35 Anaerobic Culture - Final Aspirate 04/08/20 19:09 Blood Culture - Preliminary Blood No Growth after 120 hours Assessment and Plan Assessment: Sepsis secondary to diverticulitis with peridiverticular 5.5 cm abscess status post CT-guided drainage with drain in place. -Patient was on IV cefepime and Flagyl. ID switched cefepime to Rocephin on 04/12/2020. ID recommends 2 weeks of IV Rocephin and Flagyl (start date 04/12). midline ordered on 04/12/2020 however due to the weekend and will be placed on 04/15/2020. Case management has arranged for home infusion and patient has already received his antibiotics at home. -Culture from abscess grew alpha hemolytic streptococcus -Repeat CT abdomen and pelvis shows that the abscess size has decreased however there was still diverticulitis -Gen. surgery recommends to keep patient on full liquid diet -Pain control with morphine when necessary Chronic conditions: Hyperlipidemia, mild intermittent asthma -Continue with home Pravachol 40 mg daily -DuoNeb when necessary DVT prophylaxis -IPCDs Disposition: Awaiting further surgery to advance diet. Midline will be placed on Wednesday. Anticipate patient was ready for discharge in the next 24 hours.
--- NOTE | 2020-04-14 12:01 | P.PN ---
Subjective Progress Note Date: 04/14/20 CHIEF COMPLAINT: Diverticulitis HISTORY OF PRESENT ILLNESS: The patient is a 54-year-old male status post CT guided drainage of diverticular abscess, 04/10/20. His pain is much improved from yesterday. He is tolerating diet. He is passing much flatus. He is having bowel movements. ROS: No reports of nausea and vomiting. No fevers or chills. No new chest pain. No productive sputum. Tmax 99.3 PHYSICAL EXAM: VITAL SIGNS: Reviewed CONSTITUTIONAL: Well developed and in no acute distress. EYES: Conjuctivae without sclera icterus. Extraocular movements grossly intact. HEAD, EARS, NOSE, THROAT: Moist buccal mucosa. Head is atraumatic, normocephalic. Hears conversational speech. No nasal drainage. NECK: Supple. No thyroidomegaly. RESPIRATORY: Non-labored respirations and equal bilateral excursions. CARDIOVASCULAR: Palpable 2+ radial pulses. ABDOMEN: No peritonitis. Bri-umbilical tenderness. CT drain with pus. MUSCULOSKELETAL: No gross deformity of the lower extremities noted. No c lubbing. No cyanosis. SKIN: Good skin turgor. Well perfused. NEUROLOGIC: Cranial nerves II through XII grossly intact. No focal or lateralizing signs. PSYCH: Appropriate affect. Alert and oriented to person, place and time. CLINICAL LABS: White blood cell count normal 10.0 from 10.8, yesterday. STUDIES: CT of the abdomen and pelvis and pending review demonstrated collapse of fluid collection above the bladder and sigmoid colon. No free air. ASSESSMENT: 1. Diverticulitis with abscess PLAN: 1. Advance diet to low fiber. 2. Continue antibiotics and CT drain. Objective - Vital Signs Vital signs: Vital Signs Temp 97.6 F 04/14/20 07:00 Pulse 87 04/14/20 07:00 Resp 16 04/14/20 07:00 BP 125/81 04/14/20 07:00 Pulse Ox 95 04/14/20 07:00 Intake & Output 04/13/20 04/14/20 04/14/20 18:59 06:59 18:59 Intake Total 540 340 150 Balance 540 340 150 Intake: Intake, IV Titration 100 150 Amount cefTRIAXone 2 gm In 50 Sodium Chloride 0.9% 50 ml @ 100 mls/hr IVPB Q24HR [facility] Rx#:[id number] metroNIDAZOLE-NS PMX 500 100 100 mg In Saline 1 100ml.bag @ 100 mls/hr IVPB Q8HR [facility] Rx#:[id number] Oral 540 240 Other: Voiding Method Toilet # Voids 3 1 - Labs CBC & Chem 7: 04/14/20 07:30 04/14/20 07:30 Labs: Abnormal Lab Results - Last 24 Hours (Table) 04/14/20 Range/Units 07:30 BUN 8 L (9-20) mg/dL Glucose 100 H (74-99) mg/dL Microbiology - Last 24 Hours (Table) 04/09/20 14:35 Anaerobic Culture - Final Aspirate 04/08/20 19:09 Blood Culture - Preliminary Blood No Growth after 120 hours Assessment and Plan (1) Abscess of sigmoid colon due to diverticulitis Current Visit: Yes Status: Acute Code(s): K57.20 - DVTRCLI OF LG INT W PERFORATION AND ABSCESS W/O BLEEDING SNOMED Code(s): 4637729312303102
--- NOTE | 2020-04-14 16:12 | PN ---
PROGRESS NOTE DATE OF SERVICE: 04/14/2020 Patient is a 54-year-old pleasant white male admitted to hospital with acute sigmoid diverticulitis complicated with a sigmoid abscess, for which he underwent CT-guided drainage, drainage catheter placement 5 days ago. He still has some purulent material that is draining through the catheter. Repeat CT scan done yesterday showed decreased abscess size but persistent inflammation. Remains on broad-spectrum antibiotics. Overall he is feeling a little bit better. PHYSICAL EXAMINATION: He appears comfortable. VITAL SIGNS: Stable. Blood pressure 125/81, pulse 81, temperature 97.6. HEENT: Examination unremarkable. Conjunctivae are pink, sclerae anicteric. Oral cavity no lesions. NECK: No JVD or lymph node enlargement. CHEST: Clear to auscultation. HEART: Regular rate and rhythm. ABDOMEN: Soft. There was tenderness in the suprapubic area at the site of catheter, but the rest of abdomen is benign. EXTREMITIES: No pedal edema. NEUROLOGIC: Alert and oriented x3. No focal deficits. LABS: WBC 10.6, hemoglobin 15.3, platelets normal. Basic metabolic panel is within normal limits. IMPRESSION: Acute sigmoid diverticulitis, complicated with diverticular abscess. CT-guided catheter in place still draining and gradually improving. Remains on antibiotics. RECOMMENDATIONS: 1. Continue with antibiotics. 2. Advance diet as per Surgery. 3. We will follow with you closely. Thank you for this consultation. LISANDRAL / MARYN: [id number] /
[2020-04-14] MEDS: PRAVASTATIN SODIUM 40 MG TAB PO SCH (22:00)
--- NOTE | 2020-04-14 22:24 | PN ---
PROGRESS NOTE DATE OF SERVICE: 04/14/2020 REASON FOR FOLLOWUP: Abdominal abscess from ruptured diverticulitis. INTERVAL HISTORY: Patient is currently afebrile. The patient is breathing comfortably. The patient denies having any chest pain. No shortness of breath or cough. Overall abdominal pain is currently controlled and drainage has decreased in the drainage catheter. PHYSICAL EXAMINATION: Blood pressure 132/84 with a pulse of 82, temperature 98.2. He is 95% on room air. General description: The patient is a middle-aged male lying in bed in no distress. Respiratory system: Unlabored breathing. Clear to auscultation anteriorly. Heart S1, S2. Regular rhythm. ABDOMEN: Soft. Less distended. Minimal drainage in the drainage catheter. LABS: Hemoglobin is 15.8, white count 10.6, BUN of 8, creatinine 0.87. DIAGNOSTIC IMPRESSION AND PLAN: Patient with abdominal abscess from ruptured diverticulitis status post CT-guided drainage. The patient at this time to continue with Rocephin 2 grams daily along with Flagyl and we will monitor clinical course closely. Continue supportive care. MMODL / IJN: [id number] /
[2020-04-15] MEDS: metroNIDAZOLE-NS PMX 500 MG in SALINE 1 100ML.BAG IVPB SCH ×2 (00:12→08:38)
[2020-04-15 07:07] VITALS: BP 107/70; PULSE 69; RESP 16; TEMP 98
--- NOTE | 2020-04-15 14:34 | PN ---
PROGRESS NOTE DATE OF SERVICE: 04/15/2020 REASON FOR FOLLOWUP: Abdominal abscess. INTERVAL HISTORY: Patient is currently afebrile, patient is breathing comfortably. The patient denies having any chest pain. No shortness of breath or cough. Abdominal pain is currently controlled. No vomiting or diarrhea. Tolerating a regular diet. PHYSICAL EXAMINATION: Blood pressure 107/70 with a pulse of 69, temperature 98, he is 97% on room air. General description is a middle-aged male, up in the room in no distress. RESPIRATORY SYSTEM: Unlabored breathing, clear to auscultation anteriorly. HEART: S1, S2. Regular rate and rhythm. ABDOMEN: Soft, no tenderness. LABS: White count 10.6, blood culture negative. DIAGNOSTIC IMPRESSION AND PLAN: Patient with abdominal abscess from ruptured diverticulitis. Overall clinical improvement. Currently on Rocephin and Flagyl to continue for another 10 days in outpatient setting and close outpatient followup. MMODL / IJN: [id number] /
== END 2020-04-15 14:47 | disposition home health service (06) | DRG 872 ==
LOC: EC 16:10 → 4SSUR 18:58
PROVIDERS: ADMIT Hospitalist; ATTEND Hospitalist
PROC: 0W9H30Z Drainage of Retroperitoneum with Drainage Device, Percutaneous Approach (ICD-10-PCS; principal; 2020-04-10)
PROC: 05HF33Z Insertion of Infusion Device into Left Cephalic Vein, Percutaneous Approach (ICD-10-PCS; 2020-04-15 19:40)
DX: A40.0 Sepsis due to streptococcus, group A (principal); K57.20 Diverticulitis of large intestine with perforation and abscess without bleeding; E11.9 Type 2 diabetes mellitus without complications; Z20.828 Contact with and (suspected) exposure to other viral communicable diseases; J45.20 Mild intermittent asthma, uncomplicated; E78.5 Hyperlipidemia, unspecified; I10 Essential (primary) hypertension; R30.0 Dysuria; E66.9 Obesity, unspecified; Z68.33 Body mass index [BMI] 33.0-33.9, adult; F17.200 Nicotine dependence, unspecified, uncomplicated; Z79.82 Long term (current) use of aspirin; Z79.899 Other long term (current) drug therapy; Z71.3 Dietary counseling and surveillance; Z87.19 Personal history of other diseases of the digestive system; Z87.39 Personal history of other diseases of the musculoskeletal system and connective tissue; Z87.828 Personal history of other (healed) physical injury and trauma; Z98.890 Other specified postprocedural states; Z88.0 Allergy status to penicillin; Z83.2 Family history of diseases of the blood and blood-forming organs and certain disorders involving the immune mechanism
CPT/HCPCS: 36410; 36415; 74177; 75989; 76937; 80048; 80053; 81001; 82150; 83605; 83690; 83735; 85025; 85027; 85610; 85730; 86850; 86900; 86901; 87040; 87070; 87075; 87077; 87186; 87205; 96360; 99285

== ENCOUNTER → 2020-04-17 | Day surgery (SDC) | payer BC | DX: Z48.03 Encounter for change or removal of drains (principal) | CPT/HCPCS: 99213 ==

== ENCOUNTER 2020-04-24 09:02 | Day surgery (SDC) | payer BC ==
[2020-04-24 09:59] VITALS: BP 127/78; PULSE 79; RESP 16; TEMP 98
== END 2020-04-24 09:59 | disposition home or self-care (01) ==
LOC: RADPROMAIN 09:02
PROVIDERS: ATTEND Surgery
DX: Z43.6 Encounter for attention to other artificial openings of urinary tract (principal)
CPT/HCPCS: 99213

== ENCOUNTER → 2020-05-28 | Outpatient (CLI) | payer BC ==
[2020-05-28 15:43] LABS: HCT 48.6 % (39.0-53.0); HGB 15.8 gm/dL (13.0-17.5); MCH 30.6 pg (25.0-35.0); MCHC 32.5 g/dL (31.0-37.0); MCV 94.2 fL (80.0-100.0); Mean Platelet Volume 7.2; Platelet Count 237 k/uL (150-450); RBC 5.16 m/uL (4.30-5.90); RDW 13.2 % (11.5-15.5); WBC 10.4 k/uL (3.8-10.6)
[2020-05-29 01:49] LABS: Anion Gap 10.6 mmol/L (4.00-12.00); Carbon Dioxide 25.4 mmol/L (21.6-31.8); Potassium 4.6 mmol/L (3.5-5.5)
== END | disposition home or self-care (01) ==
LOC: LABWHC1 15:08
PROVIDERS: ATTEND Surgery
DX: Z01.818 Encounter for other preprocedural examination (principal); K57.33 Diverticulitis of large intestine without perforation or abscess with bleeding
CPT/HCPCS: 36415; 80051; 85027

== ENCOUNTER → 2020-06-06 | Day surgery (SDC) | payer BC ==
[2020-05-31 11:46] VITALS: BMI 31.6
[~2020-06-06] MED LIST: LACTATED RINGERS 1,000 ML IV SCH; LIDOCAINE 1% (10MG/ML) FOR IV START INTRADERMA ONE; PROPOFOL 10 MG/ML 20 ML VIAL IV ONE
[2020-06-06 09:11] VITALS: RESP 16; TEMP 96.9
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
--- NOTE | 2020-06-06 10:06 | P.OP ---
Date of Procedure: 06/06/20 Preoperative Diagnosis: History of diverticulitis Postoperative Diagnosis: Severe diverticulosis sigmoid colon Procedure(s) Performed: Colonoscopy Anesthesia: MAC Surgeon: Manny Diaz Pathology: none sent Condition: stable Disposition: PACU Description of Procedure: The patient's placed on the endoscopy table in the lateral position. He received IV sedation. A gentle rectal exam is performed which revealed no abnormalities. Flexible colonoscope was then placed patient anus passed with colon. In the sigmoid colon there was severe diverticular changes. The mucosa appeared to be inflamed. Several times made to maneuver the colonoscope through the colon however this is possible. In order to prevent a perforation colon side withdrawn scope. The diverticula were examined. There is extensive diverticular changes of the sigmoid colon. Scope was then brought back the rectum this appeared normal. Scope withdrawn for patient.
[2020-06-06 10:29] VITALS: BP 118/82; PULSE 70
== END | disposition home or self-care (01) ==
LOC: ORWHC2ENDO 08:54
PROVIDERS: ATTEND Surgery
DX: K57.30 Diverticulosis of large intestine without perforation or abscess without bleeding (principal); J45.909 Unspecified asthma, uncomplicated; K21.9 Gastro-esophageal reflux disease without esophagitis; E78.5 Hyperlipidemia, unspecified; Z79.899 Other long term (current) drug therapy; Z88.0 Allergy status to penicillin; Z98.890 Other specified postprocedural states; Z87.891 Personal history of nicotine dependence; Z82.49 Family history of ischemic heart disease and other diseases of the circulatory system; Z80.3 Family history of malignant neoplasm of breast
CPT/HCPCS: 45378; J2704

== ENCOUNTER 2020-08-07 16:20 | Emergency (ER) | payer BC ==
[2020-08-07 16:36] VITALS: RESP 16; TEMP 98.1
[2020-08-07] MEDS ORDERED: SODIUM CHLORIDE 0.9% 500 ML 500 ML IV STA (16:57)
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
[2020-08-07 17:18] LABS: Basophils # (A) 0.1 k/uL (0-0.2); Basophils % (A) 1 %; Eosinophils # (A) 0.4 k/uL (0-0.7); Eosinophils % (A) 5 %; HCT 46.2 % (39.0-53.0); HGB 15.3 gm/dL (13.0-17.5); Lymphocytes # (A) 2.1 k/uL (1.0-4.8); Lymphocytes % (A) 23 %; MCV 93.7 fL (80.0-100.0); Mean Platelet Volume 7.2; Monocytes # (A) 0.6 k/uL (0-1.0); Monocytes % (A) 6 %; Neutrophils # (A) 5.8 k/uL (1.3-7.7); Neutrophils % (A) 63 %; Platelet Count 204 k/uL (150-450); RBC 4.93 m/uL (4.30-5.90); RDW 13.3 % (11.5-15.5); WBC 9.3 k/uL (3.8-10.6)
[2020-08-07 17:35] LABS: ALT 16 U/L (4-49); AST 22 U/L (17-59); African American GFR (CKD) >90 (>60 ml/min/1.73 sqM); Albumin 4.3 g/dL (3.5-5.0); Alkaline Phosphatase 62 U/L (38-126); Amylase 72 U/L (30-110); Anion Gap 9 mmol/L; Blood Urea Nitrogen 18 mg/dL (9-20); Calcium 9.4 mg/dL (8.4-10.2); Carbon Dioxide 24 mmol/L (22-30); Chloride 107 mmol/L (98-107); Glucose 113 mg/dL (74-99); Lipase 167 U/L (23-300); Non-African American GFR(CKD) >90 (>60 ml/min/1.73 sqM); Sodium 140 mmol/L (137-145); Total Bilirubin 0.5 mg/dL (0.2-1.3); Total Protein 7.3 g/dL (6.3-8.2)
--- NOTE | 2020-08-07 18:13 | CT ---
EXAMINATION TYPE: CT abdomen pelvis w con DATE OF EXAM: 08/07/2020 COMPARISON: 04/12/2020. HISTORY: Post OP Lower abdominal pain CT DLP: 1139.7 mGycm Automated exposure control for dose reduction was used. TECHNIQUE: Helical acquisition of images was performed from the lung bases through the pelvis. CONTRAST: Performed without Oral Contrast and with IV Contrast, patient injected with 100 mL of Isovue 300. FINDINGS: LUNG BASES: No significant abnormality is appreciated. LIVER/GB: No significant abnormality is appreciated. PANCREAS: No significant abnormality is seen. SPLEEN: No significant abnormality is seen. ADRENALS: No significant abnormality is seen. KIDNEYS: No significant abnormality is seen. FREE AIR: No free air is visualized. RETROPERITONEAL ADENOPATHY: None visualized REPRODUCTIVE ORGANS: No significant abnormality is seen URINARY BLADDER: No significant abnormality is seen. PELVIC ADENOPATHY: None visualized. OSSEOUS STRUCTURES: No significant abnormality is seen. BOWEL: Post surgical changes involving the sigmoid colon are noted. Also mild fat stranding in the p eriumbilical subcutaneous soft tissues, likely postsurgical change. No significant fluid collection, free air or bowel obstruction. Small bilateral fat-containing inguinal hernias are seen. Colonic dive rticulosis without acute diverticulitis. Normal appendix. OTHER: None. IMPRESSION: INTERVAL POSTSURGICAL CHANGES INVOLVING THE SIGMOID COLON WITHOUT SIGNIFICANT ACUTE ABNORMALITY SEEN.
[2020-08-07 18:33] LABS: Appearance,Urine Clear (Clear); Bilirubin,Urine Negative (Negative); Blood,Urine Negative (Negative); Color,Urine Yellow; Glucose,Urine (UA) Negative (Negative); Ketones,Urine Negative (Negative); Leukocyte Esterase,Urine Negative (Negative); Nitrite,Urine Negative (Negative); PH, Urine 5.5 (5.0-8.0); Protein,Urine Negative (Negative); Urobilinogen,Urine <2.0 mg/dL (<2.0)
[2020-08-07] MEDS ORDERED: KETOROLAC 15 MG/ML 1 ML VIAL IVP STA (18:40)
[2020-08-07 19:30] VITALS: BP 127/79; PULSE 65
== END 2020-08-07 19:31 | disposition home or self-care (01) ==
LOC: EC 16:20
DX: G89.18 Other acute postprocedural pain (principal); R10.32 Left lower quadrant pain; E78.5 Hyperlipidemia, unspecified; Z79.899 Other long term (current) drug therapy; Z79.82 Long term (current) use of aspirin; Z88.0 Allergy status to penicillin; Z90.49 Acquired absence of other specified parts of digestive tract; Z87.891 Personal history of nicotine dependence
CPT/HCPCS: 36415; 80053; 82150; 83690; 85025; 81003; 74177; 99284; 96374; J1885; Q9967